=== PATIENT | male | born 1960 | race African-American/Black ===

== ENCOUNTER 2017-01-23 08:16 | Inpatient (IN) | payer OTHER ==
[2017-01-23 08:51] VITALS: BMI 27.3
--- NOTE | 2017-01-23 10:41 | HP ---
CIWA Score - CIWA Score Nausea/Vomitin-No Nausea/No Vomiting Muscle Tremors: 4-Moderate,w/Arms Extend Anxiety: 4-Mod. Anxious/Guarded Agitation: 4-Moderately Restless Paroxysmal Sweats: 1-Minimal Palms Moist Orientation: 0-Oriented Tacttile Disturbances: 3-Moderate Itch/Numb/Burn Auditory Disturbances: 0-None Visual Disturbances: 0-None Headache: 0-None Present CIWA-Ar Total Score: 16 Admission ROS BHS - HPI Chief Complaint: DETOX TREATMENT FOR ALCOHOL WITHDRAWAL SX. Allergies/Adverse Reactions: Allergies Allergy/AdvReac Type Severity Reaction Status Date / Time penicillin V Allergy Hives Verified 01/23/17 09:06 History of Present Illness: 56 Y/O AA/MALE WITH A HX OF ALCOHOL DEPENDENCE SEEKING DETOX TX. PT HAS PREVIOUS MULTIPLE TX EPISODES. Exam Limitations: No Limitations - Ebola screening Have you traveled outside of the country in the last 21 days: No Have you had contact with anyone from an Ebola affected area: No Have you been sick,other than usual withdrawal symptoms: No Do you have a fever: No - Review of Systems Constitutional: Chills, Night Sweats, Changes in sleep, Unintentional Wgt. Loss EENT: reports: Blurred Vision, Dental Problems (MISSING TEETH) Respiratory: reports: No Symptoms reported Cardiac: reports: Lightheadedness GI: reports: Constipated, Diarrhea, Nausea, Poor Fluid Intake, Vomiting : reports: No Symptoms Reported Musculoskeletal: reports: Back Pain, Joint Pain, Muscle Pain Integumentary: reports: No Symptoms Reported Neuro: reports: Tremors, Unsteady Gait, Dizziness Endocrine: reports: No Symptoms Reported Hematology: reports: No Symptoms Reported Psychiatric: reports: Orientated x3 Other Systems: Reviewed and Negative Patient History - Patient Medical History Hx Anemia: No Hx Asthma: No Hx Chronic Obstructive Pulmonary Disease (COPD): No Hx Cancer: No Hx Cardiac Disorders: No Hx Congestive Heart Failure: No Hx Hypertension: No Hx Hypercholesterolemia: No Hx Pacemaker: No HX Cerebrovascular Accident: No Hx Seizures: No Hx Dementia: No Hx Diabetes: No Hx Gastrointestinal Disorders: No Hx Liver Disease: Yes (LIVER CIRRHOSIS) Hx Genitourinary Disorders: No Hx Sexually Transmitted Disorders: Yes (sphyllis) Hx Renal Disease (ESRD): No Hx Thyroid Disease: No Hx Human Immunodeficiency Virus (HIV): No (NEGATIVE HX) Hx Hepatitis C: Yes Hx Depression: Yes (NO CURRENT MED) Hx Suicide Attempt: No Hx Bipolar Disorder: No Hx Schizophrenia: No - Patient Surgical History Past Surgical History: Yes Hx Neurologic Surgery: No Hx Cataract Extraction: No Hx Cardiac Surgery: No Hx Lung Surgery: No Hx Breast Surgery: No Hx Breast Biopsy: No Hx Abdominal Surgery: No Hx Appendectomy: No Hx Cholecystectomy: No Hx Genitourinary Surgery: Yes (testicular surgery in childhood) Hx Orthopedic Surgery: No Anesthesia Reaction: No - PPD History Previous Implant?: Yes Documented Results: Negative w/proof Implanted On Prior [facility] Admission?: Yes Date: 04/11/15 Results: 0 mm PPD to be Administered?: Yes - Reproductive History Patient is a Female of Child Bearing Age (11 -55 yrs old): No (MALE) - Smoking Cessation Smoking history: Current every day smoker Have you smoked in the past 12 months: Yes Aproximately how many cigarettes per day: 10 Cigars Per Day: 0 Hx Chewing Tobacco Use: No Initiated information on smoking cessation: Yes 'Breaking Loose' booklet given: 01/23/17 - Substance & Tx. History Hx Alcohol Use: Yes (VODKA) Hx Substance Use: Yes (COCAINE) Substance Use Type: Alcohol, Cocaine Hx Substance Use Treatment: Yes (LAST TX AT [facility] DETOX) - Substances Abused Alcohol Route: Oral Frequency: Daily Amount used: vodka(2 pints) Age of first use: 13 Date of Last Use: 01/22/17 Cocaine Route: Smoking Frequency: Daily Amount used: $200-300 Age of first use: 23 Date of Last Use: 01/21/17 Family Disease History - Family Disease History Family History: Denies Admission Physical Exam [facility] - Vital Signs Vital Signs: Vital Signs - 24 hr 01/23/17 08:49 Temperature 97.8 F Pulse Rate 78 Respiratory 20 Rate Blood Pressure 105/86 - Physical General Appearance: Yes: Moderate Distress, Irritable, Anxious HEENTM: Yes: EOMI, Normocephalic, PROSPER, Pharynx Normal, Photophobia Respiratory: Yes: Chest Non-Tender, Lungs Clear, Normal Breath Sounds, No Respiratory Distress Neck: Yes: No masses,lesions,Nodules, Supple, Trachea in good position Breast: Yes: Breast Exam Deferred Cardiology: Yes: Regular Rhythm, Regular Rate, S1, S2 Abdominal: Yes: Normal Bowel Sounds, Non Tender, Soft Genitourinary: Yes: Other (N/C) Back: Yes: Within Normal Limits Musculoskeletal: Yes: full range of Motion, Gait Steady Extremities: Yes: Normal Range of Motion, Non-Tender, Tremors Neurological: Yes: striker off II-XII NML intact, Fully Oriented, Alert, Motor Strength 5/5 Integumentary: Yes: Dry, Warm Lymphatic: Yes: Within Normal Limits - Diagnostic (1) Alcohol dependence with uncomplicated withdrawal Current Visit: Yes Status: Acute (2) Cirrhosis of liver Current Visit: Yes Status: Chronic Qualifiers: Hepatic cirrhosis type: alcoholic cirrhosis Ascites presence: without ascites Qualified Code(s): K70.30 - Alcoholic cirrhosis of liver without ascites (3) Hepatitis C Current Visit: Yes Status: Chronic Qualifiers: Viral hepatitis chronicity: chronic Hepatic coma status: without hepatic coma Qualified Code(s): B18.2 - Chronic viral hepatitis C (4) Cocaine dependence, uncomplicated Current Visit: Yes Status: Acute (5) Nicotine dependence Current Visit: Yes Status: Acute Qualifiers: Nicotine product type: cigarettes Substance use status: in withdrawal Qualified Code(s): F17.213 - Nicotine dependence, cigarettes, with withdrawal Cleared for Admission [facility] - Detox or Rehab [facility] Level of Care: Medically Managed Detox Regimen/Protocol: Librium [facility] Breath Alcohol Content Breath Alcohol Content: 0 Urine Drug Screen - Results Drug Screen Negative: No Urine Drug Screen Results: GORDO-Cocaine
[2017-01-23] MEDS ORDERED: P-EPHED 60MG/TRIPROLIDI 2.5MG TABLET PO PRN (10:50)
[2017-01-23] MEDS ORDERED: hydrOXYzine PAMOATE 25 MG CAPSULE (FP) PO PRN (10:50)
[2017-01-23] MEDS ORDERED: MAGNESIUM CITRATE 300 ML BOTTLE PO PRN (10:50)
[2017-01-23] MEDS ORDERED: LOPERAMIDE HCL 2 MG CAPSULE PO PRN (10:50)
[2017-01-23] MEDS ORDERED: MAGNESIUM HYDROX 2400MG/30ML ORAL SUSPENSION 30 ML CUP PO PRN (10:50)
[2017-01-23] MEDS ORDERED: MAG HYDROX/AL HYDROX/SIMETH 30 ML UNIT-DOSE CUP PO PRN (10:50)
[2017-01-23] MEDS ORDERED: MENTHOL/PHENOL 1 EACH UD MM PRN (10:50)
[2017-01-23] MEDS ORDERED: chlordiazePOXIDE HCL 25 MG CAPSULE PO PRN (10:50)
[2017-01-23] MEDS ORDERED: guaiFENesin/D-METHORPHAN HB 10 ML UNIT-DOSE CUPS PO PRN (10:50)
[2017-01-23] MEDS ORDERED: IBUPROFEN 400 MG TABLET (FP) PO PRN (10:50)
[2017-01-23] MEDS ORDERED: NICOTINE POLACRILEX 2 MG GUM BUC PRN (10:50)
[2017-01-23 12:21] LABS: HIV 1 & 2 AB NEGATIVE; HIV 1 AGp24 NEGATIVE
[2017-01-23] MEDS: chlordiazePOXIDE HCL 25 MG CAPSULE PO SCH ×3 (12:35→22:17)
[2017-01-23] MEDS: NICOTINE 14 MG/24 HOURS TOPICAL PATCH TD SCH (12:36)
--- NOTE | 2017-01-23 15:39 | EKG ---
Test Reason : Blood Pressure : / mmHG Vent. Rate : 073 BPM Atrial Rate : 073 BPM P-R Int : 144 ms QRS Dur : 092 ms QT Int : 400 ms P-R-T Axes : 057 -07 035 degrees QTc Int : 440 ms NORMAL SINUS RHYTHM WITH SINUS ARRHYTHMIA NORMAL ECG NO PREVIOUS ECGS AVAILABLE Confirmed by DANICA PIZARRO MD ([id number]) on 01/23/2017 3:38:55 PM Referred By: Confirmed By:DANICA PIZARRO MD
[2017-01-23 16:23] LABS: URINE APPEARANCE CLEAR; URINE BILIRUBIN NEGATIVE (NEGATIVE); URINE BLOOD NEGATIVE (NEGATIVE); URINE COLOR YELLOW; URINE GLUCOSE (UA) NEGATIVE (NEGATIVE); URINE KETONE NEGATIVE (NEGATIVE); URINE NITRITE NEGATIVE (NEGATIVE); URINE PROTEIN NEGATIVE (NEGATIVE); URINE UROBILINOGEN NEGATIVE mg/dL (0.2-1.0)
[2017-01-23 18:51] LABS: URINE LEUK ESTERASE Negative (NEGATIVE)
[2017-01-23] MEDS: THIAMINE HCL 100 MG TABLET (FP) PO SCH (22:17)
[2017-01-24] MEDS: chlordiazePOXIDE HCL 25 MG CAPSULE PO SCH ×4 (05:24→22:26)
--- NOTE | 2017-01-24 09:44 | PN ---
[facility] CIWA - CIWA Score Nausea/Vomitin Muscle Tremors: 3 Anxiety: 3 Agitation: 2 Paroxysmal Sweats: 1-Minimal Palms Moist Orientation: 0-Oriented Tacttile Disturbances: 1-Very Mild Itch/Numbness Auditory Disturbances: 1-Very Mild Visual Disturbances: 2-Mild Sensitivity Headache: 0-None Present CIWA-Ar Total Score: 16 BHS Progress Note (SOAP) Subjective: alert,irritable,anxious,interrupted sleep,tremor Objective: 01/24/17 09:42 Vital Signs Temperature 97.5 F L 01/24/17 09:38 Pulse Rate 72 01/24/17 09:38 Respiratory Rate 18 01/24/17 09:38 Blood Pressure 121/78 01/24/17 09:38 O2 Sat by Pulse Oximetry (%) ekg nsr with sinus arrhythmia Laboratory Last Values Urine Color Yellow 01/23/17 15:30 Urine Appearance Clear 01/23/17 15:30 Urine pH 5.0 (5.0-8.0) 01/23/17 15:30 Ur Specific [place] 1.026 (1.001-1.035) 01/23/17 15:30 Urine Protein Negative (NEGATIVE) 01/23/17 15:30 Urine Glucose (UA) Negative (NEGATIVE) 01/23/17 15:30 Urine Ketones Negative (NEGATIVE) 01/23/17 15:30 Urine Blood Negative (NEGATIVE) 01/23/17 15:30 Urine Nitrite Negative (NEGATIVE) 01/23/17 15:30 Urine Bilirubin Negative (NEGATIVE) 01/23/17 15:30 Urine Urobilinogen Negative mg/dL (0.2-1.0) 01/23/17 15:30 Ur Leukocyte Esterase Negative (NEGATIVE) 01/23/17 15:30 HIV 1&2 Antibody Screen Negative 01/23/17 09:20 HIV P24 Antigen Negative 01/23/17 09:20 labs pending Assessment: 01/24/17 09:43 withdrawal symptom Plan: continue detox
[2017-01-24 10:00] LABS: MCH 27.3 pg (25.7-33.7); MCHC 32.2 g/dl (32.0-35.9); MEAN CELL VOLUME 84.7 fl (80-96); MEAN PLT VOLUME 9.2 fl (7.5-11.1); PLATELET COUNT 238 K/MM3 (134-434); RDW 16.7 % (11.9-15.9)
[2017-01-24] MEDS: NICOTINE 14 MG/24 HOURS TOPICAL PATCH TD SCH (10:01)
[2017-01-24] MEDS: TRIMETHOBENZAMIDE HCL 200MG/2ML INJ IM ONE ×2 (10:01→10:04)
[2017-01-24] MEDS: PRENATAL VITAMINS W/ FOLIC ACID TABLET (FP) PO SCH (10:01)
[2017-01-24] MEDS ORDERED: TRIMETHOBENZAMIDE HCL 300 MG CAPSULE PO PRN (10:04)
[2017-01-24 10:13] LABS: ALBUMIN 3.7 g/dl (3.4-5.0); ANION GAP 7 (8-16); CO2 27 mmol/L (21-32); GLUCOSE,RANDOM 118 mg/dL (74-106); SGOT/AST 76 U/L (15-37); SGPT/ALT 80 U/L (12-78)
[2017-01-24 10:15] LABS: ALK PHOS 84 U/L (45-117); BILIRUBIN,TOTAL 0.2 mg/dL (0.2-1.0); CALCIUM 8.6 mg/dL (8.5-10.1); TOT PROT 6.9 g/dl (6.4-8.2)
--- NOTE | 2017-01-24 12:55 | CONSULT ---
[facility] Psychiatric Consult - Data Date of interview: 01/24/17 Admission source: [facility] Identifying data: Patient REFUSED psychiatric evaluation.
[2017-01-24] MEDS: THIAMINE HCL 100 MG TABLET (FP) PO SCH (22:26)
[2017-01-25] MEDS: chlordiazePOXIDE HCL 25 MG CAPSULE PO SCH (05:45)
--- NOTE | 2017-01-25 09:54 | PN ---
S CIWA - CIWA Score Nausea/Vomitin Muscle Tremors: 3 Anxiety: 3 Agitation: 2 Paroxysmal Sweats: 1-Minimal Palms Moist Orientation: 0-Oriented Tacttile Disturbances: 1-Very Mild Itch/Numbness Auditory Disturbances: 1-Very Mild Visual Disturbances: 0-None Headache: 2-Mild CIWA-Ar Total Score: 16 BHS Progress Note (SOAP) Subjective: alert,irritable,anxious,interrupted sleep,tremor Objective: 01/25/17 09:53 Vital Signs Temperature 97.3 F L 01/25/17 06:00 Pulse Rate 62 01/25/17 06:00 Respiratory Rate 18 01/25/17 06:00 Blood Pressure 108/76 01/25/17 06:00 O2 Sat by Pulse Oximetry (%) Laboratory Last Values WBC 7.0 K/mm3 (4.0-10.0) 01/24/17 06:00 RBC 4.76 M/mm3 (4.00-5.60) 01/24/17 06:00 Hgb 13.0 GM/dL (11.7-16.9) 01/24/17 06:00 Hct 40.3 % (35.4-49) 01/24/17 06:00 MCV 84.7 fl (80-96) 01/24/17 06:00 MCH 27.3 pg (25.7-33.7) 01/24/17 06:00 MCHC 32.2 g/dl (32.0-35.9) 01/24/17 06:00 RDW 16.7 % (11.9-15.9) H 01/24/17 06:00 Plt Count 238 K/MM3 (134-434) 01/24/17 06:00 MPV 9.2 fl (7.5-11.1) D 01/24/17 06:00 Sodium 140 mmol/L (136-145) 01/24/17 06:00 Potassium 3.8 mmol/L (3.5-5.1) 01/24/17 06:00 Chloride 106 mmol/L (98-107) 01/24/17 06:00 Carbon Dioxide 27 mmol/L (21-32) 01/24/17 06:00 Anion Gap 7 (8-16) L 01/24/17 06:00 BUN 17 mg/dL (7-18) 01/24/17 06:00 Creatinine 1.0 mg/dL (0.7-1.3) 01/24/17 06:00 Creat Clearance w eGFR > 60 (>60) 01/24/17 06:00 Random Glucose 118 mg/dL (74-106) H 01/24/17 06:00 Calcium 8.6 mg/dL (8.5-10.1) 01/24/17 06:00 Total Bilirubin 0.2 mg/dL (0.2-1.0) D 01/24/17 06:00 AST 76 U/L (15-37) H D 01/24/17 06:00 ALT 80 U/L (12-78) H D 01/24/17 06:00 Alkaline Phosphatase 84 U/L (45-117) 01/24/17 06:00 Total Protein 6.9 g/dl (6.4-8.2) 01/24/17 06:00 Albumin 3.7 g/dl (3.4-5.0) 01/24/17 06:00 Urine Color Yellow 01/23/17 15:30 Urine Appearance Clear 01/23/17 15:30 Urine pH 5.0 (5.0-8.0) 01/23/17 15:30 Ur Specific [place] 1.026 (1.001-1.035) 01/23/17 15:30 Urine Protein Negative (NEGATIVE) 01/23/17 15:30 Urine Glucose (UA) Negative (NEGATIVE) 01/23/17 15:30 Urine Ketones Negative (NEGATIVE) 01/23/17 15:30 Urine Blood Negative (NEGATIVE) 01/23/17 15:30 Urine Nitrite Negative (NEGATIVE) 01/23/17 15:30 Urine Bilirubin Negative (NEGATIVE) 01/23/17 15:30 Urine Urobilinogen Negative mg/dL (0.2-1.0) 01/23/17 15:30 Ur Leukocyte Esterase Negative (NEGATIVE) 01/23/17 15:30 RPR Titer Reactive 1:1 (NONREACTIVE) H D 01/24/17 06:00 T.pallidum Ab (MHA) Previously reactive (NONREACTIVE) 01/24/17 06:00 HIV 1&2 Antibody Screen Negative 01/23/17 09:20 HIV P24 Antigen Negative 01/23/17 09:20 01/25/17 09:55 previously treated for syphilis before Assessment: 01/25/17 09:56 withdrawal symptom Plan: continue detox
[2017-01-25] MEDS: PRENATAL VITAMINS W/ FOLIC ACID TABLET (FP) PO SCH (10:27)
[2017-01-25] MEDS: chlordiazePOXIDE 5 MG CAPSULE PO SCH ×3 (10:27→22:36)
[2017-01-25] MEDS: NICOTINE 14 MG/24 HOURS TOPICAL PATCH TD SCH (10:28)
[2017-01-25] MEDS: THIAMINE HCL 100 MG TABLET (FP) PO SCH (22:36)
[2017-01-26] MEDS: chlordiazePOXIDE 5 MG CAPSULE PO SCH (05:16)
--- NOTE | 2017-01-26 10:14 | PN ---
S Progress Note (SOAP) Subjective: ALERT,IRRITABLE,ANXIOUS,INTERRUPTED SLEEP,CONSTIPATION Objective: 01/26/17 10:13 Vital Signs Temperature 97.5 F L 01/26/17 10:02 Pulse Rate 77 01/26/17 10:02 Respiratory Rate 18 01/26/17 10:02 Blood Pressure 111/70 01/26/17 10:02 O2 Sat by Pulse Oximetry (%) Assessment: 01/26/17 10:13 WITHDRAWAL SYMPTOM Plan: CONTINUE DETOX,COLACE 100 MGS PO BID,[place]ROM[place],DISCHARGE IN AM
[2017-01-26] MEDS: PRENATAL VITAMINS W/ FOLIC ACID TABLET (FP) PO SCH (10:29)
[2017-01-26] MEDS: chlordiazePOXIDE HCL 10 MG CAPSULE PO SCH ×3 (10:31→22:37)
[2017-01-26] MEDS: DOCUSATE SODIUM 100 MG CAPSULE (FP) PO SCH ×2 (10:31→22:38)
[2017-01-26] MEDS: NICOTINE 14 MG/24 HOURS TOPICAL PATCH TD SCH (10:33)
[2017-01-26 22:30] VITALS: BP 121/52; PULSE 76; TEMP 98
[2017-01-26] MEDS: THIAMINE HCL 100 MG TABLET (FP) PO SCH (22:37)
--- NOTE | 2017-01-27 06:40 | DS ---
[facility] Detox Discharge Summary Admission Date: 01/23/17 Discharge Date: 01/27/17 - History Additional Comments: Detox completed. Patient is alert and oriented x 3. Denies pain or discomfort at this time. Patient encouraged to follw up with PCP for medical management. Pertinent Past History: Hep C and Depression - Physical Exam Results Vital Signs: Vital Signs Temperature 98 F 01/26/17 22:29 Pulse Rate 76 01/26/17 22:29 Respiratory Rate 18 01/27/17 03:30 Blood Pressure 121/52 01/26/17 22:29 O2 Sat by Pulse Oximetry (%) Laboratory Last Values WBC 7.0 K/mm3 (4.0-10.0) 01/24/17 06:00 RBC 4.76 M/mm3 (4.00-5.60) 01/24/17 06:00 Hgb 13.0 GM/dL (11.7-16.9) 01/24/17 06:00 Hct 40.3 % (35.4-49) 01/24/17 06:00 MCV 84.7 fl (80-96) 01/24/17 06:00 MCH 27.3 pg (25.7-33.7) 01/24/17 06:00 MCHC 32.2 g/dl (32.0-35.9) 01/24/17 06:00 RDW 16.7 % (11.9-15.9) H 01/24/17 06:00 Plt Count 238 K/MM3 (134-434) 01/24/17 06:00 MPV 9.2 fl (7.5-11.1) D 01/24/17 06:00 Sodium 140 mmol/L (136-145) 01/24/17 06:00 Potassium 3.8 mmol/L (3.5-5.1) 01/24/17 06:00 Chloride 106 mmol/L (98-107) 01/24/17 06:00 Carbon Dioxide 27 mmol/L (21-32) 01/24/17 06:00 Anion Gap 7 (8-16) L 01/24/17 06:00 BUN 17 mg/dL (7-18) 01/24/17 06:00 Creatinine 1.0 mg/dL (0.7-1.3) 01/24/17 06:00 Creat Clearance w eGFR > 60 (>60) 01/24/17 06:00 Random Glucose 118 mg/dL (74-106) H 01/24/17 06:00 Calcium 8.6 mg/dL (8.5-10.1) 01/24/17 06:00 Total Bilirubin 0.2 mg/dL (0.2-1.0) D 01/24/17 06:00 AST 76 U/L (15-37) H D 01/24/17 06:00 ALT 80 U/L (12-78) H D 01/24/17 06:00 Alkaline Phosphatase 84 U/L (45-117) 01/24/17 06:00 Total Protein 6.9 g/dl (6.4-8.2) 01/24/17 06:00 Albumin 3.7 g/dl (3.4-5.0) 01/24/17 06:00 Urine Color Yellow 01/23/17 15:30 Urine Appearance Clear 01/23/17 15:30 Urine pH 5.0 (5.0-8.0) 01/23/17 15:30 Ur Specific [place] 1.026 (1.001-1.035) 01/23/17 15:30 Urine Protein Negative (NEGATIVE) 01/23/17 15:30 Urine Glucose (UA) Negative (NEGATIVE) 01/23/17 15:30 Urine Ketones Negative (NEGATIVE) 01/23/17 15:30 Urine Blood Negative (NEGATIVE) 01/23/17 15:30 Urine Nitrite Negative (NEGATIVE) 01/23/17 15:30 Urine Bilirubin Negative (NEGATIVE) 01/23/17 15:30 Urine Urobilinogen Negative mg/dL (0.2-1.0) 01/23/17 15:30 Ur Leukocyte Esterase Negative (NEGATIVE) 01/23/17 15:30 RPR Titer Reactive 1:1 (NONREACTIVE) H D 01/24/17 06:00 T.pallidum Ab (MHA) Previously reactive (NONREACTIVE) 01/24/17 06:00 HIV 1&2 Antibody Screen Negative 01/23/17 09:20 HIV P24 Antigen Negative 01/23/17 09:20 Labs noted. Random glucose elevated. Denies h/o DM. Pertinent Admission Physical Exam Findings: Alcohol withdrawal symptoms - Treatment Hospital Course: Detox Protocol Followed, Detoxed Safely, Responded well, Discharged Condition Good Patient has Accepted a Rehab Referral to: [facility] - Medication Discharge Medications: Ambulatory Orders NK [No Known Home Medication] 01/23/17 - Diagnosis (1) Alcohol dependence with uncomplicated withdrawal Current Visit: Yes Status: Chronic (2) Nicotine dependence Current Visit: Yes Status: Chronic (3) Hepatitis C Current Visit: Yes Status: Chronic Qualifiers: Viral hepatitis chronicity: chronic Hepatic coma status: without hepatic coma Qualified Code(s): B18.2 - Chronic viral hepatitis C (4) Cocaine dependence, uncomplicated Current Visit: No Status: Chronic (5) Depression Current Visit: No Status: Chronic (6) MDD (major depressive disorder) Current Visit: No Status: Suspected Qualifiers: Major depression recurrence: recurrent Major depression episode severity: unspecified - AMA Did Patient Leave Against Medical Advice: No
== END 2017-01-27 04:50 | disposition home or self-care (01) | DRG 774 ==
LOC: YASAS 08:16 → Y3N 11:30 → Y6N 11:45
PROVIDERS: ADMIT Internal Medicine; ATTEND Internal Medicine
PROC: HZ2ZZZZ Detoxification Services for Substance Abuse Treatment (ICD-10-PCS; principal; 2017-01-23)
DX: F10.230 Alcohol dependence with withdrawal, uncomplicated (principal); F14.20 Cocaine dependence, uncomplicated; F17.213 Nicotine dependence, cigarettes, with withdrawal; F33.9 Major depressive disorder, recurrent, unspecified; B18.2 Chronic viral hepatitis C; K70.30 Alcoholic cirrhosis of liver without ascites; I49.9 Cardiac arrhythmia, unspecified; Z87.438 Personal history of other diseases of male genital organs; Z88.0 Allergy status to penicillin
CPT/HCPCS: 36415; 80053; 81003; 85027; 86593; 86780; 87389; 93005; 93010

== ENCOUNTER 2018-02-21 13:25 | Inpatient (IN) | payer OTHER ==
[2018-02-21 14:37] VITALS: BMI 27.7
--- NOTE | 2018-02-21 17:41 | HP ---
CIWA Score Nausea/Vomitin-Mild Nausea/No Vomiting Muscle Tremors: 3 Anxiety: 2 Agitation: 2 Paroxysmal Sweats: 2 Orientation: 0-Oriented Tacttile Disturbances: 0-None Auditory Disturbances: 0-None Visual Disturbances: 0-None Headache: 2-Mild CIWA-Ar Total Score: 12 - Admission Criteria [facility] Guidelines: Admission for Medically Managed Detox: Requires at least one of the followin. CIWA greater than 12 2. Seizures within the past 24 hours 3. Delirium tremens within the past 24 hours 4. Hallucinations within the past 24 hours 5. Acute intervention needed for co occurring medical disorder 6. Acute intervention needed for co occurring psychiatric disorder 7. Severe withdrawal that cannot be handled at a lower level of care (continued vomiting, continued diarrhea, abnormal vital signs) requiring intravenous medication and/or fluids 8. Patient presents the following: CIWA greater than 12 Admission Criteria Met: Admission criteria met Admission ROS [facility] Chief Complaint: "detox from alcohol, cocaine and THC" 57 yo with h/o HCV or HBV with long h/o alcohol use > 30 years, recently in detox 09/2017, relapsed one month later. Using alcohol 2 pints/day, last drink yesterday, no h/o seizures/DT's Cocaine- $350/day- uses money from inheritance THC- use just a little bit a day Allergies/Adverse Reactions: Allergies Allergy/AdvReac Type Severity Reaction Status Date / Time penicillin V Allergy Severe Hives Verified 02/21/18 15:37 acetaminophen [From Tylenol] Allergy Unknown Verified 02/21/18 15:37 - Ebola screening Have you traveled outside of the country in the last 21 days: No Have you had contact with anyone from an Ebola affected area: No Have you been sick,other than usual withdrawal symptoms: No - Review of Systems Constitutional: No Symptoms Reported EENT: reports: No Symptoms Reported Respiratory: reports: No Symptoms reported Cardiac: reports: No Symptoms Reported GI: reports: No Symptoms Reported : reports: No Symptoms Reported Musculoskeletal: reports: No Symptoms Reported Integumentary: reports: No Symptoms Reported Neuro: reports: No Symptoms reported Endocrine: reports: No Symptoms Reported Hematology: reports: No Symptoms Reported Psychiatric: reports: No Sypmtoms Reported Patient History - Patient Medical History Hx Anemia: No Hx Asthma: No Hx Chronic Obstructive Pulmonary Disease (COPD): No Hx Cancer: No Hx Cardiac Disorders: No Hx Congestive Heart Failure: No Hx Hypertension: No Hx Hypercholesterolemia: No Hx Pacemaker: No HX Cerebrovascular Accident: No Hx Seizures: No Hx Dementia: No Hx Diabetes: No Hx Gastrointestinal Disorders: No Hx Liver Disease: Yes (LIVER CIRRHOSIS) Hx Genitourinary Disorders: No Hx Sexually Transmitted Disorders: Yes (syphilis at age 16) Hx Renal Disease (ESRD): No Hx Thyroid Disease: No Hx Human Immunodeficiency Virus (HIV): No (NEGATIVE HX) Hx Hepatitis C: Yes Hx Depression: Yes Hx Suicide Attempt: No Hx Bipolar Disorder: No Hx Schizophrenia: Yes (schizoaffective disorder) - Patient Surgical History Past Surgical History: Yes Hx Neurologic Surgery: No Hx Cataract Extraction: No Hx Cardiac Surgery: No Hx Lung Surgery: No Hx Breast Surgery: No Hx Breast Biopsy: No Hx Abdominal Surgery: No Hx Appendectomy: No Hx Cholecystectomy: No Hx Genitourinary Surgery: Yes (right testicular sx as a child) Hx Section: No Hx Orthopedic Surgery: No Anesthesia Reaction: No - PPD History Previous Implant?: Yes Documented Results: Negative w/proof Implanted On Prior [facility] Admission?: Yes Date: 09/19/17 Results: 0 mm - Smoking Cessation Smoking history: Current every day smoker Have you smoked in the past 12 months: Yes Aproximately how many cigarettes per day: 8 Cigars Per Day: 0 Hx Chewing Tobacco Use: No Initiated information on smoking cessation: Yes 'Breaking Loose' booklet given: 02/27/18 - Substances Abused Cocaine Route: Inhalation Frequency: Daily Amount used: $350 Age of first use: 20 Date of Last Use: 02/20/18 Alcohol-vodka/beer Route: Oral Frequency: Daily Amount used: 1 pt./1-6 pk. Age of first use: 14 Date of Last Use: 02/20/18 Marijuana Route: Smoking Frequency: 3-6 times per week Amount used: $5 Age of first use: 20 Date of Last Use: 02/19/18 Family Disease History - Family Disease History Family Disease History: Other: Father (alcohol,), Mother (alcohol, ) Admission Physical Exam BHS - Vital Signs Vital Signs: Vital Signs - 24 hr 02/21/18 14:32 Temperature 98.6 F Pulse Rate 81 Respiratory 18 Rate Blood Pressure 122/82 - Physical General Appearance: Yes: Within Normal Limits HEENTM: Yes: Within Normal Limits, Normal Voice Respiratory: Yes: Within Normal Limits, Lungs Clear Neck: Yes: Within Normal Limits Breast: Yes: Breast Exam Deferred Cardiology: Yes: S1, S2 Abdominal: Yes: Within Normal Limits, Protuberent Genitourinary: Yes: Within Normal Limits Back: Yes: Within Normal Limits Musculoskeletal: Yes: Within Normal Limits Extremities: Yes: Within Normal Limits Neurological: Yes: Within Normal Limits Integumentary: Yes: Within Normal Limits Lymphatic: Yes: Within Normal Limits Cleared for Admission [facility] - Detox or Rehab [facility] Level of Care: Medically Managed [facility] Breath Alcohol Content Breath Alcohol Content: 0.028 Urine Drug Screen - Results Drug Screen Negative: No Urine Drug Screen Results: GORDO-Cocaine, BZO-Benzodiazepines
[2018-02-21] MEDS ORDERED: IBUPROFEN 400 MG TABLET (FP) PO PRN (17:47)
[2018-02-21] MEDS ORDERED: P-EPHED 60MG/TRIPROLIDI 2.5MG TABLET PO PRN (17:47)
[2018-02-21] MEDS ORDERED: MAG HYDROX/AL HYDROX/SIMETH 30 ML UNIT-DOSE CUP PO PRN (17:47)
[2018-02-21] MEDS ORDERED: LOPERAMIDE HCL 2 MG CAPSULE PO PRN (17:47)
[2018-02-21] MEDS ORDERED: guaiFENesin/D-METHORPHAN HB 10 ML UNIT-DOSE CUPS PO PRN (17:47)
[2018-02-21] MEDS ORDERED: MAGNESIUM HYDROX 2400MG/30ML ORAL SUSPENSION 30 ML CUP PO PRN (17:47)
[2018-02-21] MEDS ORDERED: MAGNESIUM CITRATE 300 ML BOTTLE PO PRN (17:47)
[2018-02-21] MEDS ORDERED: MENTHOL/PHENOL 1 EACH UD MM PRN (17:47)
[2018-02-21] MEDS ORDERED: chlordiazePOXIDE HCL 25 MG CAPSULE PO PRN (17:50)
[2018-02-21] MEDS ORDERED: MELATONIN 5 MG TABLETS PO PRN (22:00)
[2018-02-21] MEDS: chlordiazePOXIDE HCL 25 MG CAPSULE PO SCH (22:22)
[2018-02-21] MEDS: THIAMINE HCL 100 MG TABLET (FP) PO SCH (22:22)
[2018-02-22] MEDS: chlordiazePOXIDE HCL 25 MG CAPSULE PO SCH ×4 (05:28→22:20)
[2018-02-22] MEDS: PRENATAL VITAMINS W/ FOLIC ACID TABLET (FP) PO SCH (10:06)
[2018-02-22 11:03] LABS: HEMATOCRIT 40.3 % (35.4-49); MCH 27.7 pg (25.7-33.7); MCHC 32.2 g/dl (32.0-35.9); MEAN CELL VOLUME 86.2 fl (80-96); MEAN PLT VOLUME 8.3 fl (7.5-11.1); PLATELET COUNT 229 K/MM3 (134-434); RBC 4.68 M/mm3 (4.00-5.60)
[2018-02-22 11:51] LABS: ALBUMIN 3.4 g/dl (3.4-5.0); ALK PHOS 76 U/L (45-117); ANION GAP 10 MMOL/L (8-16); BILIRUBIN,TOTAL 0.2 mg/dL (0.2-1); BLOOD UREA NITROGEN 18 mg/dL (7-18); CALCIUM 8.4 mg/dL (8.5-10.1); CHLORIDE 108 mmol/L (98-107); CO2 23 mmol/L (21-32); CREATININE 1.1 mg/dL (0.55-1.3); GLUCOSE,RANDOM 87 mg/dL (74-106); SGOT/AST 23 U/L (15-37); SGPT/ALT 34 U/L (13-61); SODIUM 141 mmol/L (136-145); TOT PROT 6.7 g/dl (6.4-8.2)
[2018-02-22 11:58] LABS: RPR REACTIVE 1:2 (NONREACTIVE)
[2018-02-22 11:59] LABS: TREPONEMA ANTIBODY PREVIOUSLY REACTIVE (NONREACTIVE)
--- NOTE | 2018-02-22 12:38 | PN ---
[facility] CIWA - CIWA Score Nausea/Vomitin-Mild Nausea/No Vomiting Muscle Tremors: 3 Anxiety: 3 Agitation: 2 Paroxysmal Sweats: 1-Minimal Palms Moist Orientation: 0-Oriented Tacttile Disturbances: 0-None Auditory Disturbances: 0-None Visual Disturbances: 0-None Headache: 1-Very Mild CIWA-Ar Total Score: 11 S Progress Note (SOAP) Subjective: headaches tremor sweat trouble have bowel movement Objective: 02/22/18 12:51 Vital Signs Temperature 97.6 F 02/22/18 09:25 Pulse Rate 75 02/22/18 09:25 Respiratory Rate 20 02/22/18 09:25 Blood Pressure 114/72 02/22/18 09:25 O2 Sat by Pulse Oximetry (%) Laboratory Last Values WBC 5.0 K/mm3 (4.0-10.0) 02/22/18 07:30 RBC 4.68 M/mm3 (4.00-5.60) 02/22/18 07:30 Hgb 13.0 GM/dL (11.7-16.9) 02/22/18 07:30 Hct 40.3 % (35.4-49) 02/22/18 07:30 MCV 86.2 fl (80-96) 02/22/18 07:30 MCH 27.7 pg (25.7-33.7) 02/22/18 07:30 MCHC 32.2 g/dl (32.0-35.9) 02/22/18 07:30 RDW 16.0 % (11.9-15.9) H 02/22/18 07:30 Plt Count 229 K/MM3 (134-434) 02/22/18 07:30 MPV 8.3 fl (7.5-11.1) 02/22/18 07:30 Sodium 141 mmol/L (136-145) 02/22/18 07:30 Potassium 4.0 mmol/L (3.5-5.1) 02/22/18 07:30 Chloride 108 mmol/L (98-107) H 02/22/18 07:30 Carbon Dioxide 23 mmol/L (21-32) 02/22/18 07:30 Anion Gap 10 MMOL/L (8-16) 02/22/18 07:30 BUN 18 mg/dL (7-18) 02/22/18 07:30 Creatinine 1.1 mg/dL (0.55-1.3) 02/22/18 07:30 Creat Clearance w eGFR > 60 (>60) 02/22/18 07:30 Random Glucose 87 mg/dL (74-106) 02/22/18 07:30 Calcium 8.4 mg/dL (8.5-10.1) L 02/22/18 07:30 Total Bilirubin 0.2 mg/dL (0.2-1) 02/22/18 07:30 AST 23 U/L (15-37) 02/22/18 07:30 ALT 34 U/L (13-61) 02/22/18 07:30 Alkaline Phosphatase 76 U/L (45-117) 02/22/18 07:30 Total Protein 6.7 g/dl (6.4-8.2) 02/22/18 07:30 Albumin 3.4 g/dl (3.4-5.0) 02/22/18 07:30 RPR Titer Reactive 1:2 (NONREACTIVE) H D 02/22/18 07:30 T.pallidum Ab (MHA) Previously reactive (NONREACTIVE) 02/22/18 07:30 lab noted Assessment: 02/22/18 12:52 withdrawal sx constipation Plan: continue detox laxative
[2018-02-22] MEDS: THIAMINE HCL 100 MG TABLET (FP) PO SCH (22:20)
[2018-02-23] MEDS: chlordiazePOXIDE HCL 25 MG CAPSULE PO SCH ×3 (05:26→17:54)
[2018-02-23] MEDS: PRENATAL VITAMINS W/ FOLIC ACID TABLET (FP) PO SCH (10:14)
--- NOTE | 2018-02-23 16:13 | PN ---
S CIWA - CIWA Score Nausea/Vomitin-No Nausea/No Vomiting Muscle Tremors: 3 Anxiety: 1-Mildly Anxious Agitation: 2 Paroxysmal Sweats: 1-Minimal Palms Moist Orientation: 0-Oriented Tacttile Disturbances: 0-None Auditory Disturbances: 0-None Visual Disturbances: 0-None Headache: 1-Very Mild CIWA-Ar Total Score: 8 S Progress Note (SOAP) Subjective: tremor sweat irritable trouble sleep at night Objective: 02/23/18 16:13 Vital Signs Temperature 97.7 F 02/23/18 13:36 Pulse Rate 73 02/23/18 13:36 Respiratory Rate 18 02/23/18 13:36 Blood Pressure 122/76 02/23/18 13:36 O2 Sat by Pulse Oximetry (%) Laboratory Last Values WBC 5.0 K/mm3 (4.0-10.0) 02/22/18 07:30 RBC 4.68 M/mm3 (4.00-5.60) 02/22/18 07:30 Hgb 13.0 GM/dL (11.7-16.9) 02/22/18 07:30 Hct 40.3 % (35.4-49) 02/22/18 07:30 MCV 86.2 fl (80-96) 02/22/18 07:30 MCH 27.7 pg (25.7-33.7) 02/22/18 07:30 MCHC 32.2 g/dl (32.0-35.9) 02/22/18 07:30 RDW 16.0 % (11.9-15.9) H 02/22/18 07:30 Plt Count 229 K/MM3 (134-434) 02/22/18 07:30 MPV 8.3 fl (7.5-11.1) 02/22/18 07:30 Sodium 141 mmol/L (136-145) 02/22/18 07:30 Potassium 4.0 mmol/L (3.5-5.1) 02/22/18 07:30 Chloride 108 mmol/L (98-107) H 02/22/18 07:30 Carbon Dioxide 23 mmol/L (21-32) 02/22/18 07:30 Anion Gap 10 MMOL/L (8-16) 02/22/18 07:30 BUN 18 mg/dL (7-18) 02/22/18 07:30 Creatinine 1.1 mg/dL (0.55-1.3) 02/22/18 07:30 Creat Clearance w eGFR > 60 (>60) 02/22/18 07:30 Random Glucose 87 mg/dL (74-106) 02/22/18 07:30 Calcium 8.4 mg/dL (8.5-10.1) L 02/22/18 07:30 Total Bilirubin 0.2 mg/dL (0.2-1) 02/22/18 07:30 AST 23 U/L (15-37) 02/22/18 07:30 ALT 34 U/L (13-61) 02/22/18 07:30 Alkaline Phosphatase 76 U/L (45-117) 02/22/18 07:30 Total Protein 6.7 g/dl (6.4-8.2) 02/22/18 07:30 Albumin 3.4 g/dl (3.4-5.0) 02/22/18 07:30 RPR Titer Reactive 1:2 (NONREACTIVE) H D 02/22/18 07:30 T.pallidum Ab (MHA) Previously reactive (NONREACTIVE) 02/22/18 07:30 lab noted Assessment: 02/23/18 16:13 withdrawal sx Plan: continue detox
[2018-02-23] MEDS: chlordiazePOXIDE 5 MG CAPSULE PO SCH (22:26)
[2018-02-23] MEDS: THIAMINE HCL 100 MG TABLET (FP) PO SCH (22:26)
[2018-02-24] MEDS: chlordiazePOXIDE 5 MG CAPSULE PO SCH ×3 (05:30→17:04)
[2018-02-24] MEDS: PRENATAL VITAMINS W/ FOLIC ACID TABLET (FP) PO SCH (10:12)
[2018-02-24] MEDS ORDERED: PANTOPRAZOLE 40 MG TABLET (FP) PO SCH (10:30)
--- NOTE | 2018-02-24 14:39 | PN ---
S Progress Note Note: PATIENT C/O CONSTIPATION AND HEARTBURN. ALERT AND ORIENTED X 3. CONTINUES WITH DETOX REGIMEN. DENIES SHAKES, ANXIETY AND SWEATING. Vital Signs Temperature 96.7 F L 02/24/18 13:24 Pulse Rate 84 02/24/18 13:24 Respiratory Rate 18 02/24/18 13:24 Blood Pressure 128/77 02/24/18 13:24 O2 Sat by Pulse Oximetry (%) Laboratory Tests 02/22/18 02/22/18 02/22/18 07:30 07:30 07:30 WBC 5.0 RBC 4.68 Hgb 13.0 Hct 40.3 MCV 86.2 MCH 27.7 MCHC 32.2 RDW 16.0 H Plt Count 229 MPV 8.3 Sodium 141 Potassium 4.0 Chloride 108 H Carbon Dioxide 23 Anion Gap 10 BUN 18 Creatinine 1.1 Creat Clearance w eGFR > 60 Random Glucose 87 Calcium 8.4 L Total Bilirubin 0.2 AST 23 ALT 34 Alkaline Phosphatase 76 Total Protein 6.7 Albumin 3.4 RPR Titer Reactive 1:2 H D T.pallidum Ab (A) Previously reactive PE; SKIN WARM AND DRY CAR S1S2 RESP CTA BL GI SOFT, BS+, NT EXT FULL ROM, NO TREMORS ALERT AND ORIENTED X 3 A/P WITHDRAWAL SX CONSTIPATION CONTINUE DETOX ENCOURAGE ORAL FLUIDS MOM AND CITROMA PRN FOR CONSTIPATION ADD PROTONIX 40MG DAILY CONTINUE TO MONITOR
[2018-02-24] MEDS: THIAMINE HCL 100 MG TABLET (FP) PO SCH (22:19)
[2018-02-24] MEDS: chlordiazePOXIDE HCL 10 MG CAPSULE PO SCH (22:20)
[2018-02-25] MEDS: chlordiazePOXIDE HCL 10 MG CAPSULE PO SCH (05:30)
[2018-02-25 06:21] VITALS: BP 103/55; PULSE 61; TEMP 97.2
== END 2018-02-25 09:30 | disposition home or self-care (01) | DRG 774 ==
LOC: YASAS 13:25 → Y3N 18:30
PROC: HZ2ZZZZ Detoxification Services for Substance Abuse Treatment (ICD-10-PCS; principal; 2018-02-21)
DX: F10.230 Alcohol dependence with withdrawal, uncomplicated (principal); F14.20 Cocaine dependence, uncomplicated; F12.10 Cannabis abuse, uncomplicated; F17.210 Nicotine dependence, cigarettes, uncomplicated; K59.00 Constipation, unspecified; K74.60 Unspecified cirrhosis of liver; Z87.438 Personal history of other diseases of male genital organs
CPT/HCPCS: 36415; 80053; 85027; 86593; 86780

== ENCOUNTER 2019-01-02 11:26 | Inpatient (IN) | payer OTHER ==
[2019-01-02 12:46] VITALS: BMI 28.6
--- NOTE | 2019-01-02 14:14 | HP ---
CIWA Score Nausea/Vomitin-No Nausea/No Vomiting Muscle Tremors: 4-Moderate,w/Arms Extend Anxiety: 0-No Anxiety, at Ease Agitation: 0-Normal Activity Paroxysmal Sweats: No Perspiration Orientation: 0-Oriented Tacttile Disturbances: 0-None Auditory Disturbances: 0-None Visual Disturbances: 0-None Headache: 0-None Present CIWA-Ar Total Score: 4 - Admission Criteria [facility] Guidelines: Admission for Medically Managed Detox: Requires at least one of the followin. CIWA greater than 12 2. Seizures within the past 24 hours 3. Delirium tremens within the past 24 hours 4. Hallucinations within the past 24 hours 5. Acute intervention needed for co occurring medical disorder 6. Acute intervention needed for co occurring psychiatric disorder 7. Severe withdrawal that cannot be handled at a lower level of care (continued vomiting, continued diarrhea, abnormal vital signs) requiring intravenous medication and/or fluids 8. Admitting History and Physical - Admission History of Present Illness: 58 y.o. M PMH hepatitis B- untreated, diagnosed a few years ago. Crack: Daily use, has been using for ~20 years. Last used 1 week ago. $250/day about 4g. Smokes, never injected. Lopez never overdosed. EtOH: uses daily. Drinks 2x 6 packs and 2 pints vodka, rum daily. Last drank today, had a few beers. Has never had a seizure form not drinking. Heroin: last used 3 weeks ago. Sniffs, never injected before. Used about 4 bags at once, less than 1 oz. per bag. Marijuana: uses 3x/ week. Last used less than 2 weeks ago. Cigarettes: 10 per day. Has been smoking for 25 years. PSH: appendectomy. Social hx: Lives alone. Has as his support system. Transgender. Not currently working, doing community service. Last incarcerated beginning of this year. Allergies: tylenol, Penicillin-- face swells up, difficulty breathing when he does take it. Meds: None Faily hx: non- contributory - Past Medical History Hepatobiliary: Yes: Hepatitis B - Past Surgical History Past Surgical History: Yes: Appendectomy - Smoking History Smoking history: Current every day smoker Have you smoked in the past 12 months: Yes Aproximately how many cigarettes per day: 8 - Alcohol/Substance Use Hx Alcohol Use: Yes Admission ROS S - HPI Allergies/Adverse Reactions: Allergies Allergy/AdvReac Type Severity Reaction Status Date / Time penicillin V Allergy Severe Hives Verified 01/02/19 12:38 acetaminophen [From Tylenol] Allergy Unknown Verified 01/02/19 12:38 - Ebola screening Have you traveled outside of the country in the last 21 days: No Have you had contact with anyone from an Ebola affected area: No Do you have a fever: No Patient History - Patient Medical History Hx Anemia: No Hx Asthma: No Hx Chronic Obstructive Pulmonary Disease (COPD): No Hx Cancer: No Hx Cardiac Disorders: No Hx Congestive Heart Failure: No Hx Hypertension: No Hx Hypercholesterolemia: No Hx Pacemaker: No HX Cerebrovascular Accident: No Hx Seizures: No Hx Dementia: No Hx Diabetes: No Hx Gastrointestinal Disorders: No Hx Liver Disease: Yes (LIVER CIRRHOSIS) Hx Genitourinary Disorders: No Hx Sexually Transmitted Disorders: Yes (syphilis at age 16) Hx Renal Disease (ESRD): No Hx Thyroid Disease: No Hx Human Immunodeficiency Virus (HIV): No (NEGATIVE HX) Hx Hepatitis C: Yes Hx Depression: Yes Hx Suicide Attempt: No Hx Bipolar Disorder: No Hx Schizophrenia: Yes (schizoaffective disorder) - Patient Surgical History Past Surgical History: Yes Hx Neurologic Surgery: No Hx Cataract Extraction: No Hx Cardiac Surgery: No Hx Lung Surgery: No Hx Breast Surgery: No Hx Breast Biopsy: No Hx Abdominal Surgery: No Hx Appendectomy: No Hx Cholecystectomy: No Hx Genitourinary Surgery: Yes (right testicular sx as a child) Hx Section: No Hx Orthopedic Surgery: No Anesthesia Reaction: No - PPD History Date: 09/19/17 Results: 0 mm - Smoking Cessation Smoking history: Current every day smoker Have you smoked in the past 12 months: Yes Aproximately how many cigarettes per day: 8 Cigars Per Day: 0 Hx Chewing Tobacco Use: No - Substances abused Crack Substance route: Smoking Frequency: 3-6 times per week Amount used: $250 Age of first use: 23 Date of last use: 12/26/18 Marijuana/Hashish Substance route: Smoking Frequency: 1-2 times per week Amount used: $10 Age of first use: 16 Date of last use: 12/19/18 Alcohol Substance route: Smoking Frequency: Daily Amount used: (2) 6 packs of beer and a pint of vodka Age of first use: 13 Date of last use: 01/02/19 Admission Physical Exam S - Vital Signs Vital Signs: Vital Signs - 24 hr 01/02/19 12:39 Temperature 98.4 F Pulse Rate 82 Respiratory 18 Rate Blood Pressure 145/91 - Physical General Appearance: Yes: Within Normal Limits HEENTM: Yes: Hearing grossly Normal, Normocephalic, PROSPER Respiratory: Yes: Lungs Clear, Normal Breath Sounds Neck: Yes: Within Normal Limits Cardiology: Yes: Regular Rhythm, S1, S2 Abdominal: Yes: Within Normal Limits, Normal Bowel Sounds Back: Yes: Within Normal Limits Extremities: Yes: Tremors Neurological: Yes: heavy duty custodian II-XII NML intact, Fully Oriented, Alert Breathalyzer - Breathalyzer Breathalyzer: 0 Urine Drug Screen - Test Device Lot number: [id number] Expiration date: 08/11/20 - Control Is test valid?: Yes - Results Drug screen NEGATIVE: Yes
[2019-01-02] MEDS ORDERED: P-EPHED 60MG/TRIPROLIDI 2.5MG TABLET PO PRN (15:33)
[2019-01-02] MEDS ORDERED: MENTHOL/PHENOL 1 EACH UD MM PRN (15:33)
[2019-01-02] MEDS ORDERED: IBUPROFEN 400 MG TABLET (FP) PO PRN (15:33)
[2019-01-02] MEDS ORDERED: MAG HYDROX/AL HYDROX/SIMETH 30 ML UNIT-DOSE CUP PO PRN (15:33)
[2019-01-02] MEDS ORDERED: guaiFENesin 200 MG/10 ML 10 ML UNIT-DOSE CUPS PO PRN (15:33)
[2019-01-02] MEDS ORDERED: LOPERAMIDE HCL 2 MG CAPSULE PO PRN (15:33)
[2019-01-02] MEDS ORDERED: MAGNESIUM CITRATE 300 ML BOTTLE PO PRN (15:33)
[2019-01-02] MEDS ORDERED: MAGNESIUM HYDROX 2400MG/30ML ORAL SUSPENSION 30 ML CUP PO PRN (15:33)
[2019-01-02] MEDS: THIAMINE HCL 100 MG TABLET (FP) PO SCH (21:45)
[2019-01-03 00:01] LABS: URINE APPEARANCE CLEAR; URINE BILIRUBIN NEGATIVE (NEGATIVE); URINE COLOR YELLOW; URINE GLUCOSE (UA) NEGATIVE (NEGATIVE); URINE KETONE NEGATIVE (NEGATIVE); URINE LEUK ESTERASE NEGATIVE (NEGATIVE); URINE NITRITE NEGATIVE (NEGATIVE); URINE PROTEIN NEGATIVE (NEGATIVE)
[2019-01-03] MEDS: PRENATAL VITAMINS W/ FOLIC ACID TABLET (FP) PO SCH (10:36)
[2019-01-03 11:40] LABS: HEMATOCRIT 40.2 % (35.4-49); MCH 27.6 pg (25.7-33.7); MCHC 32.4 g/dl (32.0-35.9); MEAN CELL VOLUME 85.1 fl (80-96); MEAN PLT VOLUME 8.5 fl (7.5-11.1); PLATELET COUNT 269 K/MM3 (134-434); RBC 4.72 M/mm3 (4.00-5.60); RDW 16.4 % (11.9-15.9); WHITE BLOOD COUNT 5.6 K/mm3 (4.0-10.0)
[2019-01-03 11:56] LABS: ALBUMIN 3.7 g/dl (3.4-5.0); BILIRUBIN,TOTAL 0.3 mg/dL (0.2-1); BLOOD UREA NITROGEN 21.8 mg/dL (7-18); CALCIUM 9.1 mg/dL (8.5-10.1); CREATININE 1.3 mg/dL (0.55-1.3); POTASSIUM 4.4 mmol/L (3.5-5.1)
[2019-01-03 12:07] LABS: RPR REACTIVE 1:2 (NONREACTIVE)
[2019-01-03 12:08] LABS: TREPONEMA ANTIBODY PREVIOUSLY REACTIVE (NONREACTIVE)
--- NOTE | 2019-01-03 15:26 | PN ---
[facility] Progress Note (SOAP) Subjective: patient with positive RPR. States he is aware that he has syphilis. Started treatment in previous program but did not complete it because he came to this program. Objective: P/E General: no apparent distress Skin: no s/s of rash Neuro: CN 2-12 intact 01/03/19 15:23 Abnormal Lab Results 01/03/19 01/03/19 01/03/19 09:06 09:06 09:06 RDW 16.4 H BUN 21.8 H Random Glucose 138 H RPR Titer Reactive 1:2 H Assessment: syphilis 01/03/19 15:25 Plan: Doxycycline 100 BID for 14 days started. Explained the importance of completing treatment and patient agreed to continue medication when discharged.
[2019-01-03] MEDS: DOXYCYCLINE HYCLATE 100 MG TABLET PO SCH (17:11)
[2019-01-03] MEDS: THIAMINE HCL 100 MG TABLET (FP) PO SCH (21:24)
[2019-01-04] MEDS: PRENATAL VITAMINS W/ FOLIC ACID TABLET (FP) PO SCH (09:37)
[2019-01-04] MEDS: DOXYCYCLINE HYCLATE 100 MG TABLET PO SCH ×2 (09:37→17:19)
[2019-01-04] MEDS: THIAMINE HCL 100 MG TABLET (FP) PO SCH (22:09)
[2019-01-05] MEDS: DOXYCYCLINE HYCLATE 100 MG TABLET PO SCH ×2 (09:32→17:13)
[2019-01-05] MEDS: PRENATAL VITAMINS W/ FOLIC ACID TABLET (FP) PO SCH (09:32)
[2019-01-05] MEDS ORDERED: PT OWN MED DRAWER 7, Y5N ONE (17:13)
[2019-01-05] MEDS: THIAMINE HCL 100 MG TABLET (FP) PO SCH (21:48)
[2019-01-06 00:06] LABS: HEP B CORE AB, TOT Positive (Negative)
[2019-01-06] MEDS: PRENATAL VITAMINS W/ FOLIC ACID TABLET (FP) PO SCH (10:24)
[2019-01-06] MEDS: DOXYCYCLINE HYCLATE 100 MG TABLET PO SCH ×2 (10:24→17:40)
[2019-01-06] MEDS: THIAMINE HCL 100 MG TABLET (FP) PO SCH (22:20)
[2019-01-07] MEDS: PRENATAL VITAMINS W/ FOLIC ACID TABLET (FP) PO SCH (09:34)
[2019-01-07] MEDS: DOXYCYCLINE HYCLATE 100 MG TABLET PO SCH ×2 (09:34→18:01)
[2019-01-07] MEDS ORDERED: PT OWN MED DRAWER 7, Y5N ONE (18:00)
[2019-01-07] MEDS: THIAMINE HCL 100 MG TABLET (FP) PO SCH (21:34)
[2019-01-08] MEDS: PRENATAL VITAMINS W/ FOLIC ACID TABLET (FP) PO SCH (09:35)
--- NOTE | 2019-01-08 10:32 | PN ---
[facility] Progress Note Note: Laboratory Tests 01/02/19 01/03/19 01/03/19 19:00 09:06 09:06 WBC 5.6 RBC 4.72 Hgb 13.0 Hct 40.2 MCV 85.1 MCH 27.6 MCHC 32.4 RDW 16.4 H Plt Count 269 MPV 8.5 Sodium 141 Potassium 4.4 Chloride 107 Carbon Dioxide 25 Anion Gap 9 BUN 21.8 H Creatinine 1.3 Est GFR (CKD-EPI)AfAm 68.74 Est GFR (CKD-EPI)NonAf 59.31 Random Glucose 138 H Calcium 9.1 Total Bilirubin 0.3 AST 17 ALT 32 Alkaline Phosphatase 67 Total Protein 7.0 Albumin 3.7 Urine Color Yellow Urine Appearance Clear Urine pH 6.0 Ur Specific [place] 1.026 Urine Protein Negative Urine Glucose (UA) Negative Urine Ketones Negative Urine Blood Negative Urine Nitrite Negative Urine Bilirubin Negative Urine Urobilinogen 1.0 Ur Leukocyte Esterase Negative RPR Titer T.pallidum Ab (MHA) Hep A IgM Ab Confirm Hepatitis A Ab Total Hep Bs Antigen Hep Bs Antibody Hep B Core Total Ab Hep B Core IgM Ab Hepatitis Be Antibody Hepatitis Be Antigen Hep C Ab Diagnostic HIV 1&2 Antibody Screen HIV P24 Antigen 01/03/19 01/03/19 01/04/19 09:06 09:06 08:50 WBC RBC Hgb Hct MCV MCH MCHC RDW Plt Count MPV Sodium Potassium Chloride Carbon Dioxide Anion Gap BUN Creatinine Est GFR (CKD-EPI)AfAm Est GFR (CKD-EPI)NonAf Random Glucose Calcium Total Bilirubin AST ALT Alkaline Phosphatase Total Protein Albumin Urine Color Urine Appearance Urine pH Ur Specific [place] Urine Protein Urine Glucose (UA) Urine Ketones Urine Blood Urine Nitrite Urine Bilirubin Urine Urobilinogen Ur Leukocyte Esterase RPR Titer Reactive 1:2 H T.pallidum Ab (MHA) Previously reactive Hep A IgM Ab Confirm Negative Hepatitis A Ab Total Positive H Hep Bs Antigen Positive H Hep Bs Antibody Non reactive Hep B Core Total Ab Positive H Hep B Core IgM Ab Negative Hepatitis Be Antibody Positive H Hepatitis Be Antigen Negative Hep C Ab Diagnostic HIV 1&2 Antibody Screen Negative HIV P24 Antigen Negative 01/04/19 08:50 WBC RBC Hgb Hct MCV MCH MCHC RDW Plt Count MPV Sodium Potassium Chloride Carbon Dioxide Anion Gap BUN Creatinine Est GFR (CKD-EPI)AfAm Est GFR (CKD-EPI)NonAf Random Glucose Calcium Total Bilirubin AST ALT Alkaline Phosphatase Total Protein Albumin Urine Color Urine Appearance Urine pH Ur Specific [place] Urine Protein Urine Glucose (UA) Urine Ketones Urine Blood Urine Nitrite Urine Bilirubin Urine Urobilinogen Ur Leukocyte Esterase RPR Titer T.pallidum Ab (MHA) Hep A IgM Ab Confirm Hepatitis A Ab Total Hep Bs Antigen Hep Bs Antibody Hep B Core Total Ab Hep B Core IgM Ab Hepatitis Be Antibody Hepatitis Be Antigen Hep C Ab Diagnostic <0.1 HIV 1&2 Antibody Screen HIV P24 Antigen Lab results reviewed with patient . Patient currently on Doxycycline for +RPR. Patient explained meaning of results and provider answered all of patient questions. Safe sex counseling/STD precaution counseling provided by director underwriter sales with patient verbalization of understanding. Patient to continue treatment as ordered.
[2019-01-08] MEDS: DOXYCYCLINE HYCLATE 100 MG TABLET PO SCH ×2 (10:45→17:26)
[2019-01-08] MEDS: THIAMINE HCL 100 MG TABLET (FP) PO SCH (21:18)
[2019-01-08] MEDS: MELATONIN 5 MG TABLETS PO PRN (21:18)
[2019-01-09] MEDS: PRENATAL VITAMINS W/ FOLIC ACID TABLET (FP) PO SCH (09:59)
[2019-01-09] MEDS: DOXYCYCLINE HYCLATE 100 MG TABLET PO SCH ×2 (10:02→17:41)
[2019-01-09] MEDS: AMMONIUM LACTATE 12% LOTION 225 GM BOTTLE TP PRN (14:51)
[2019-01-09] MEDS ORDERED: PT OWN MED DRAWER 7, Y5N ONE (17:36)
[2019-01-09] MEDS: MELATONIN 5 MG TABLETS PO PRN (21:27)
[2019-01-09] MEDS: THIAMINE HCL 100 MG TABLET (FP) PO SCH (21:27)
[2019-01-10] MEDS ORDERED: PT OWN MED DRAWER 7, Y5N ONE ×4 (08:47→21:42)
[2019-01-10] MEDS: DOXYCYCLINE HYCLATE 100 MG TABLET PO SCH ×2 (09:33→17:03)
[2019-01-10] MEDS: PRENATAL VITAMINS W/ FOLIC ACID TABLET (FP) PO SCH (09:33)
--- NOTE | 2019-01-10 16:06 | PN ---
[facility] Progress Note Note: patient requested hepatitis panel. Was reactive to syphilis and at risk for sexually transmitted diseases. Panel indicated that patient was chronically infected with HEP B, which patient admitted once lab test was reviewed. P/D; General: no apparent distress Lungs: clear Heart: s1 s2 Abd: +BS, non-tender, non-distended Neuro: CN 2-12 intact Vital Signs Period Temp Pulse Resp BP Sys/Blas Pulse Ox Last 24 Hr 97.8 F 73 18-18 110/74 Laboratory Last Values WBC 5.6 K/mm3 (4.0-10.0) 01/03/19 09:06 RBC 4.72 M/mm3 (4.00-5.60) 01/03/19 09:06 Hgb 13.0 GM/dL (11.7-16.9) 01/03/19 09:06 Hct 40.2 % (35.4-49) 01/03/19 09:06 MCV 85.1 fl (80-96) 01/03/19 09:06 MCH 27.6 pg (25.7-33.7) 01/03/19 09:06 MCHC 32.4 g/dl (32.0-35.9) 01/03/19 09:06 RDW 16.4 % (11.9-15.9) H 01/03/19 09:06 Plt Count 269 K/MM3 (134-434) 01/03/19 09:06 MPV 8.5 fl (7.5-11.1) 01/03/19 09:06 Sodium 141 mmol/L (136-145) 01/03/19 09:06 Potassium 4.4 mmol/L (3.5-5.1) 01/03/19 09:06 Chloride 107 mmol/L (98-107) 01/03/19 09:06 Carbon Dioxide 25 mmol/L (21-32) 01/03/19 09:06 Anion Gap 9 MMOL/L (8-16) 01/03/19 09:06 BUN 21.8 mg/dL (7-18) H 01/03/19 09:06 Creatinine 1.3 mg/dL (0.55-1.3) 01/03/19 09:06 Est GFR (CKD-EPI)AfAm 68.74 01/03/19 09:06 Est GFR (CKD-EPI)NonAf 59.31 01/03/19 09:06 Random Glucose 138 mg/dL (74-106) H 01/03/19 09:06 Calcium 9.1 mg/dL (8.5-10.1) 01/03/19 09:06 Total Bilirubin 0.3 mg/dL (0.2-1) 01/03/19 09:06 AST 17 U/L (15-37) 01/03/19 09:06 ALT 32 U/L (13-61) 01/03/19 09:06 Alkaline Phosphatase 67 U/L (45-117) 01/03/19 09:06 Total Protein 7.0 g/dl (6.4-8.2) 01/03/19 09:06 Albumin 3.7 g/dl (3.4-5.0) 01/03/19 09:06 Urine Color Yellow 01/02/19 19:00 Urine Appearance Clear 01/02/19 19:00 Urine pH 6.0 (5.0-8.0) 01/02/19 19:00 Ur Specific [place] 1.026 (1.010-1.035) 01/02/19 19:00 Urine Protein Negative (NEGATIVE) 01/02/19 19:00 Urine Glucose (UA) Negative (NEGATIVE) 01/02/19 19:00 Urine Ketones Negative (NEGATIVE) 01/02/19 19:00 Urine Blood Negative (NEGATIVE) 01/02/19 19:00 Urine Nitrite Negative (NEGATIVE) 01/02/19 19:00 Urine Bilirubin Negative (NEGATIVE) 01/02/19 19:00 Urine Urobilinogen 1.0 mg/dL (0.2-1.0) 01/02/19 19:00 Ur Leukocyte Esterase Negative (NEGATIVE) 01/02/19 19:00 RPR Titer Reactive 1:2 (NONREACTIVE) H 01/03/19 09:06 T.pallidum Ab (MHA) Previously reactive (NONREACTIVE) 01/03/19 09:06 Hep A IgM Ab Confirm Negative (Negative) 01/04/19 08:50 Hepatitis A Ab Total Positive (Negative) H 01/04/19 08:50 Hep Bs Antigen Positive (Negative) H 01/04/19 08:50 Hep Bs Antibody Non reactive (.) 01/04/19 08:50 Hep B Core Total Ab Positive (Negative) H 01/04/19 08:50 Hep B Core IgM Ab Negative (Negative) 01/04/19 08:50 Hepatitis Be Antibody Positive (Negative) H 01/04/19 08:50 Hepatitis Be Antigen Negative (Negative) 01/04/19 08:50 Hep C Ab Diagnostic <0.1 s/co ratio (0.0-0.9) 01/04/19 08:50 HIV 1&2 Antibody Screen Negative 01/03/19 09:06 HIV P24 Antigen Negative 01/03/19 09:06 Assessment: Chronic HEP B infection Plan: advised patient to follow up with primary care provider for further evaluation and treatment.
[2019-01-10] MEDS: MELATONIN 5 MG TABLETS PO PRN (21:21)
[2019-01-10] MEDS: THIAMINE HCL 100 MG TABLET (FP) PO SCH (21:21)
[2019-01-11] MEDS ORDERED: PT OWN MED DRAWER 7, Y5N ONE (09:04)
[2019-01-11] MEDS: DOXYCYCLINE HYCLATE 100 MG TABLET PO SCH ×2 (09:41→17:00)
[2019-01-11] MEDS: PRENATAL VITAMINS W/ FOLIC ACID TABLET (FP) PO SCH (09:41)
[2019-01-11] MEDS: THIAMINE HCL 100 MG TABLET (FP) PO SCH (21:29)
[2019-01-12] MEDS: PRENATAL VITAMINS W/ FOLIC ACID TABLET (FP) PO SCH (09:39)
[2019-01-12] MEDS: DOXYCYCLINE HYCLATE 100 MG TABLET PO SCH ×2 (09:39→17:09)
--- NOTE | 2019-01-12 10:24 | PN ---
[facility] Progress Note Note: REviewed labs with pt- Hep B results and liver tests. Pt was noted to have HepB- chronic, with HbSag pos and HBe pos. Nl LFT's. d/w pt that he needs to f/u with PCP for further evaluation and possible treatment. pt will talk to counselor re PCP
[2019-01-12] MEDS: MELATONIN 5 MG TABLETS PO PRN (21:13)
[2019-01-12] MEDS: THIAMINE HCL 100 MG TABLET (FP) PO SCH (21:13)
[2019-01-13] MEDS: AMMONIUM LACTATE 12% LOTION 225 GM BOTTLE TP PRN (06:37)
[2019-01-13] MEDS ORDERED: PT OWN MED DRAWER 7, Y5N ONE (06:38)
[2019-01-13] MEDS: PRENATAL VITAMINS W/ FOLIC ACID TABLET (FP) PO SCH (09:42)
[2019-01-13] MEDS: DOXYCYCLINE HYCLATE 100 MG TABLET PO SCH ×2 (09:42→17:30)
[2019-01-13] MEDS: THIAMINE HCL 100 MG TABLET (FP) PO SCH (21:23)
[2019-01-13] MEDS: MELATONIN 5 MG TABLETS PO PRN (21:23)
[2019-01-14] MEDS: PRENATAL VITAMINS W/ FOLIC ACID TABLET (FP) PO SCH (10:08)
[2019-01-14] MEDS: DOXYCYCLINE HYCLATE 100 MG TABLET PO SCH ×2 (10:08→17:04)
[2019-01-14] MEDS ORDERED: PT OWN MED DRAWER 7, Y5N ONE (14:21)
[2019-01-14] MEDS: MELATONIN 5 MG TABLETS PO PRN (21:25)
[2019-01-14] MEDS: THIAMINE HCL 100 MG TABLET (FP) PO SCH (21:25)
[2019-01-15] MEDS: PRENATAL VITAMINS W/ FOLIC ACID TABLET (FP) PO SCH (10:49)
[2019-01-15] MEDS: THIAMINE HCL 100 MG TABLET (FP) PO SCH (21:37)
[2019-01-16] MEDS: PRENATAL VITAMINS W/ FOLIC ACID TABLET (FP) PO SCH (11:38)
--- NOTE | 2019-01-16 16:33 | DS ---
[facility] Rehab Discharge Summary - [facility] Rehab Discharge Summary Admission Date: 01/02/19 Discharge Date: 01/17/19 - History Present History: Alcohol dependence, Cannabis dependence, Cocaine dependence Additional Comments: Pt is a 58 y/o male with a hx of MARY LOU admitted to rehab and discharging on . Pertinent Past History: Hep C Liver Cirrhosis - Discharge Physical Exam Vital Signs: Vital Signs Temperature 98.1 F 01/16/19 07:21 Pulse Rate 78 01/16/19 07:21 Respiratory Rate 18 01/16/19 07:21 Blood Pressure 118/73 01/16/19 07:21 O2 Sat by Pulse Oximetry (%) Alert o x 3 nad oob ambulating with steady gait cardiac:s1 s2,rrr lungs:cta,manny. abdomen:soft,+bs,nt,nd extremities/skin:no edema,full ROM,skin intact. Pertinent Admission Physical Exam Findings: Laboratory Tests 01/02/19 01/03/19 01/03/19 19:00 09:06 09:06 WBC 5.6 RBC 4.72 Hgb 13.0 Hct 40.2 MCV 85.1 MCH 27.6 MCHC 32.4 RDW 16.4 H Plt Count 269 MPV 8.5 Sodium 141 Potassium 4.4 Chloride 107 Carbon Dioxide 25 Anion Gap 9 BUN 21.8 H Creatinine 1.3 Est GFR (CKD-EPI)AfAm 68.74 Est GFR (CKD-EPI)NonAf 59.31 Random Glucose 138 H Calcium 9.1 Total Bilirubin 0.3 AST 17 ALT 32 Alkaline Phosphatase 67 Total Protein 7.0 Albumin 3.7 Urine Color Yellow Urine Appearance Clear Urine pH 6.0 Ur Specific [place] 1.026 Urine Protein Negative Urine Glucose (UA) Negative Urine Ketones Negative Urine Blood Negative Urine Nitrite Negative Urine Bilirubin Negative Urine Urobilinogen 1.0 Ur Leukocyte Esterase Negative RPR Titer T.pallidum Ab (MHA) Hep A IgM Ab Confirm Hepatitis A Ab Total Hep Bs Antigen Hep Bs Antibody Hep B Core Total Ab Hep B Core IgM Ab Hepatitis Be Antibody Hepatitis Be Antigen Hep C Ab Diagnostic HIV 1&2 Antibody Screen HIV P24 Antigen 01/03/19 01/03/19 01/04/19 09:06 09:06 08:50 WBC RBC Hgb Hct MCV MCH MCHC RDW Plt Count MPV Sodium Potassium Chloride Carbon Dioxide Anion Gap BUN Creatinine Est GFR (CKD-EPI)AfAm Est GFR (CKD-EPI)NonAf Random Glucose Calcium Total Bilirubin AST ALT Alkaline Phosphatase Total Protein Albumin Urine Color Urine Appearance Urine pH Ur Specific [place] Urine Protein Urine Glucose (UA) Urine Ketones Urine Blood Urine Nitrite Urine Bilirubin Urine Urobilinogen Ur Leukocyte Esterase RPR Titer Reactive 1:2 H T.pallidum Ab (MHA) Previously reactive Hep A IgM Ab Confirm Negative Hepatitis A Ab Total Positive H Hep Bs Antigen Positive H Hep Bs Antibody Non reactive Hep B Core Total Ab Positive H Hep B Core IgM Ab Negative Hepatitis Be Antibody Positive H Hepatitis Be Antigen Negative Hep C Ab Diagnostic HIV 1&2 Antibody Screen Negative HIV P24 Antigen Negative 01/04/19 08:50 WBC RBC Hgb Hct MCV MCH MCHC RDW Plt Count MPV Sodium Potassium Chloride Carbon Dioxide Anion Gap BUN Creatinine Est GFR (CKD-EPI)AfAm Est GFR (CKD-EPI)NonAf Random Glucose Calcium Total Bilirubin AST ALT Alkaline Phosphatase Total Protein Albumin Urine Color Urine Appearance Urine pH Ur Specific [place] Urine Protein Urine Glucose (UA) Urine Ketones Urine Blood Urine Nitrite Urine Bilirubin Urine Urobilinogen Ur Leukocyte Esterase RPR Titer T.pallidum Ab (MHA) Hep A IgM Ab Confirm Hepatitis A Ab Total Hep Bs Antigen Hep Bs Antibody Hep B Core Total Ab Hep B Core IgM Ab Hepatitis Be Antibody Hepatitis Be Antigen Hep C Ab Diagnostic <0.1 HIV 1&2 Antibody Screen HIV P24 Antigen Pt was instructed to follow up with his medical provider with copy of lab result for medical management. - Treatment Discharge Condition: Discharge condition good Hospital Course: Rehabilitated safely and responded well CD aftercare referral accepted. - Medication Discharge Medications: Ambulatory Orders NK [No Known Home Medication] 01/23/17 - Medication-Assisted Treatment (MAT) Medication-Assisted Treatment (MAT): No - Discharge Instructions Diet, activity, other medical instructions: Diet:Regular Activity: oob ad meek Other medical instructions:follow up with CD aftercare with [facility] as recommended. - Diagnosis (1) Nicotine dependence Status: Chronic Qualifiers: Nicotine product type: cigarettes Substance use status: uncomplicated Qualified Code(s): F17.210 - Nicotine dependence, cigarettes, uncomplicated (2) Alcohol dependence Status: Chronic (3) Cirrhosis of liver Status: Chronic Qualifiers: Ascites presence: unspecified (4) Cocaine dependence Status: Chronic (5) Hepatitis C Status: Chronic Qualifiers: Viral hepatitis chronicity: unspecified (6) Marijuana abuse Status: Chronic (7) Nicotine dependence Status: Chronic - Follow-up Referral Minutes to complete discharge: 25 - AMA Did Patient Leave Against Medical Advice: No
[2019-01-16] MEDS: MELATONIN 5 MG TABLETS PO PRN (21:24)
[2019-01-16] MEDS: THIAMINE HCL 100 MG TABLET (FP) PO SCH (21:24)
[2019-01-17 07:04] VITALS: BP 106/67; PULSE 70; TEMP 97.4
[2019-01-17] MEDS ORDERED: PT OWN MED DRAWER 7, Y5N ONE (08:25)
--- NOTE | 2019-01-17 13:56 | PN ---
S Progress Note Note: Pt was discharged today as scheduled in medically stable condition. Vital Signs - 24 hr 01/17/19 01/17/19 00:30 07:03 Temperature 97.4 F L Pulse Rate 70 Respiratory 18 18 Rate Blood Pressure 106/67 D/w patient to follow up with referrals as scheduled.
== END 2019-01-17 08:30 | disposition home or self-care (01) | DRG 772 ==
LOC: YASAS 11:26 → Y3W 15:06
PROVIDERS: ADMIT Neuromusculoskeletal Medicine & OMM; ATTEND Neuromusculoskeletal Medicine & OMM
PROC: HZ42ZZZ Group Counseling for Substance Abuse Treatment, Cognitive-Behavioral (ICD-10-PCS; principal; 2019-01-02)
DX: F10.20 Alcohol dependence, uncomplicated (principal); F14.20 Cocaine dependence, uncomplicated; F12.10 Cannabis abuse, uncomplicated; F17.210 Nicotine dependence, cigarettes, uncomplicated; K74.60 Unspecified cirrhosis of liver; B18.1 Chronic viral hepatitis B without delta-agent; A53.9 Syphilis, unspecified; Z88.0 Allergy status to penicillin; Z88.6 Allergy status to analgesic agent
CPT/HCPCS: 36415; 80053; 81003; 85027; 86593; 86704; 86706; 86707; 86708; 86709; 86780; 86803; 87340; 87389

== ENCOUNTER 2020-10-07 17:35 | Inpatient (IN) | payer OTHER ==
[2020-10-07 22:50] VITALS: BMI 32.5
[2020-10-07] MEDS ORDERED: MAG HYDROX/AL HYDROX/SIMETH 30 ML UNIT-DOSE CUP PO PRN (23:09)
[2020-10-07] MEDS ORDERED: LOPERAMIDE HCL 2 MG CAPSULE PO PRN (23:09)
[2020-10-07] MEDS ORDERED: MAGNESIUM HYDROX 2400MG/30ML ORAL SUSPENSION 30 ML CUP PO PRN (23:09)
[2020-10-07] MEDS ORDERED: NICOTINE POLACRILEX 2 MG GUM BC PRN (23:09)
[2020-10-07] MEDS ORDERED: guaiFENesin 200 MG/10 ML 10 ML UNIT-DOSE CUPS PO PRN (23:09)
[2020-10-07] MEDS ORDERED: P-EPHED 60MG/TRIPROLIDI 2.5MG TABLET PO PRN (23:09)
[2020-10-07] MEDS ORDERED: MAGNESIUM CITRATE 300 ML BOTTLE PO PRN (23:09)
[2020-10-07] MEDS ORDERED: IBUPROFEN 400 MG TABLET (FP) PO PRN (23:09)
[2020-10-08] MEDS: MELATONIN 5 MG TABLETS PO SCH ×2 (00:02→21:23)
[2020-10-08] MEDS ORDERED: TUBERCULIN PPD 5 TU/0.1ML VIAL ID ONE ×2 (02:30→07:20)
[2020-10-08] MEDS: NICOTINE 14 MG/24 HOURS TOPICAL PATCH TD SCH (09:47)
[2020-10-08] MEDS: PRENATAL VITAMINS W/ FOLIC ACID TABLET (FP) PO SCH ×2 (09:48)
[2020-10-08 10:06] LABS: MCH 26.9 pg (25.7-33.7); MCHC 32.5 g/dl (32.0-35.9); MEAN CELL VOLUME 82.8 fl (80-96); MEAN PLT VOLUME 8.4 fl (7.5-11.1); PLATELET COUNT 270 10^3/uL (134-434); RBC 4.47 M/mm3 (4.00-5.60); WHITE BLOOD COUNT 6.5 K/mm3 (4.0-10.0)
[2020-10-08 10:15] LABS: ALBUMIN 3.5 g/dl (3.4-5.0)
[2020-10-08 10:16] LABS: BILIRUBIN,TOTAL 0.2 mg/dL (0.2-1); TOT PROT 6.7 g/dl (6.4-8.2)
[2020-10-08 10:23] LABS: CALCIUM 8.9 mg/dL (8.5-10.1)
[2020-10-08] MEDS: THIAMINE HCL 100 MG TABLET (FP) PO SCH (21:24)
[2020-10-09] MEDS: PRENATAL VITAMINS W/ FOLIC ACID TABLET (FP) PO SCH (09:54)
[2020-10-09] MEDS: NICOTINE 14 MG/24 HOURS TOPICAL PATCH TD SCH (09:54)
[2020-10-09] MEDS: MELATONIN 5 MG TABLETS PO SCH (21:44)
[2020-10-09] MEDS: THIAMINE HCL 100 MG TABLET (FP) PO SCH (21:44)
[2020-10-10] MEDS: NICOTINE 14 MG/24 HOURS TOPICAL PATCH TD SCH (10:01)
[2020-10-10] MEDS: PRENATAL VITAMINS W/ FOLIC ACID TABLET (FP) PO SCH (10:01)
[2020-10-10] MEDS ORDERED: AMMONIUM LACTATE 12% LOTION 225 GM BOTTLE TP PRN (14:06)
[2020-10-10 14:47] LABS: URINE APPEARANCE CLEAR; URINE BILIRUBIN NEGATIVE (NEGATIVE); URINE COLOR YELLOW; URINE GLUCOSE (UA) NEGATIVE (NEGATIVE); URINE KETONE NEGATIVE (NEGATIVE); URINE LEUK ESTERASE NEGATIVE (NEGATIVE); URINE NITRITE NEGATIVE (NEGATIVE); URINE PROTEIN NEGATIVE (NEGATIVE); URINE UROBILINOGEN 0.2 mg/dL (0.2-1.0)
[2020-10-10] MEDS: MELATONIN 5 MG TABLETS PO SCH (22:59)
[2020-10-10] MEDS: THIAMINE HCL 100 MG TABLET (FP) PO SCH (23:00)
[2020-10-11] MEDS: NICOTINE 14 MG/24 HOURS TOPICAL PATCH TD SCH (10:35)
[2020-10-11] MEDS: PRENATAL VITAMINS W/ FOLIC ACID TABLET (FP) PO SCH (10:36)
[2020-10-11] MEDS: THIAMINE HCL 100 MG TABLET (FP) PO SCH (22:32)
[2020-10-11] MEDS: MELATONIN 5 MG TABLETS PO SCH (22:32)
[2020-10-12] MEDS: NICOTINE 14 MG/24 HOURS TOPICAL PATCH TD SCH (10:21)
[2020-10-12] MEDS: PRENATAL VITAMINS W/ FOLIC ACID TABLET (FP) PO SCH (10:21)
[2020-10-12] MEDS: THIAMINE HCL 100 MG TABLET (FP) PO SCH (22:02)
[2020-10-12] MEDS: MELATONIN 5 MG TABLETS PO SCH (22:02)
[2020-10-13 07:34] VITALS: BP 118/78; PULSE 79; TEMP 97.2
[2020-10-13] MEDS: NICOTINE 14 MG/24 HOURS TOPICAL PATCH TD SCH (10:41)
[2020-10-13] MEDS: PRENATAL VITAMINS W/ FOLIC ACID TABLET (FP) PO SCH (10:41)
== END 2020-10-13 11:25 | disposition home or self-care (01) | DRG 772 ==
LOC: YASAS 17:35 → Y5N 23:26
PROVIDERS: ADMIT Allergy & Immunology; ATTEND Allergy & Immunology
PROC: HZ42ZZZ Group Counseling for Substance Abuse Treatment, Cognitive-Behavioral (ICD-10-PCS; principal; 2020-10-07)
DX: F10.20 Alcohol dependence, uncomplicated (principal); F17.210 Nicotine dependence, cigarettes, uncomplicated; F64.9 Gender identity disorder, unspecified; F33.9 Major depressive disorder, recurrent, unspecified; F43.10 Post-traumatic stress disorder, unspecified; K74.60 Unspecified cirrhosis of liver; Z88.0 Allergy status to penicillin; Z88.6 Allergy status to analgesic agent; Z86.19 Personal history of other infectious and parasitic diseases; Z87.890 Personal history of sex reassignment
CPT/HCPCS: 36415; 80053; 81003; 85027; 86593; 86780; 93005; 93010; C9803; U0003; U0005

== ENCOUNTER 2020-11-30 08:56 | Inpatient (IN) | payer OTHER ==
[2020-11-30 09:31] VITALS: BMI 30.4
[2020-11-30] MEDS ORDERED: MAGNESIUM CITRATE 300 ML BOTTLE PO PRN (11:05)
[2020-11-30] MEDS ORDERED: BISMUTH SUBSALICYLATE 524 MG/30 ML PO PRN (11:05)
[2020-11-30] MEDS ORDERED: NICOTINE 10 MG CARTRIDGE (INHALER) IH PRN (11:05)
[2020-11-30] MEDS ORDERED: ACETAMINOPHEN 325 MG TABLET (FP) PO PRN ×2 (11:05)
[2020-11-30] MEDS ORDERED: METHOCARBAMOL 500 MG TABLET PO PRN (11:05)
[2020-11-30] MEDS ORDERED: IBUPROFEN 400 MG TABLET (FP) PO PRN (11:05)
[2020-11-30] MEDS ORDERED: MAGNESIUM HYDROX 2400MG/30ML ORAL SUSPENSION 30 ML CUP PO PRN (11:05)
[2020-11-30] MEDS ORDERED: MAG HYDROX/AL HYDROX/SIMETH 30 ML UNIT-DOSE CUP PO PRN (11:05)
[2020-11-30] MEDS ORDERED: MENTHOL/PHENOL 1 EACH UD MM PRN (11:05)
[2020-11-30] MEDS ORDERED: ONDANSETRON *ODT* 4 MG TABLET SL PRN (11:05)
[2020-11-30] MEDS ORDERED: LORazepam 1 MG TABLET PO PRN (11:05)
[2020-11-30] MEDS: hydrOXYzine PAMOATE 25 MG CAPSULE (FP) PO SCH ×3 (13:37→22:14)
[2020-11-30] MEDS: LORazepam 2 MG TABLET PO SCH ×2 (17:20→22:14)
[2020-11-30] MEDS: THIAMINE HCL 100 MG TABLET (FP) PO SCH (22:14)
[2020-11-30] MEDS: MELATONIN 5 MG TABLETS PO SCH (22:15)
[2020-12-01] MEDS: LORazepam 2 MG TABLET PO SCH ×4 (05:56→23:43)
[2020-12-01] MEDS: hydrOXYzine PAMOATE 25 MG CAPSULE (FP) PO SCH ×5 (05:56→23:44)
[2020-12-01] MEDS: PRENATAL VITAMINS W/ FOLIC ACID TABLET (FP) PO SCH (10:23)
[2020-12-01] MEDS ORDERED: cloNIDine HCL 0.1 MG TABLET PO PRN (10:23)
[2020-12-01 11:31] LABS: HEMATOCRIT 40.6 % (35.4-49); HEMOGLOBIN 13.5 GM/dL (11.7-16.9); MCH 27.3 pg (25.7-33.7); MCHC 33.3 g/dl (32.0-35.9); MEAN CELL VOLUME 81.9 fl (80-96); MEAN PLT VOLUME 8.5 fl (7.5-11.1); PLATELET COUNT 281 10^3/uL (134-434); RBC 4.95 M/mm3 (4.00-5.60); RDW 16.8 % (11.9-15.9); WHITE BLOOD COUNT 6.2 K/mm3 (4.0-10.0)
[2020-12-01 12:01] LABS: CALCIUM 9.1 mg/dL (8.5-10.1)
[2020-12-01 12:02] LABS: ALBUMIN 3.9 g/dl (3.4-5.0)
[2020-12-01 12:05] LABS: CREATININE 1.3 mg/dL (0.55-1.3)
[2020-12-01 12:06] LABS: BILIRUBIN,TOTAL 0.5 mg/dL (0.2-1)
[2020-12-01 12:07] LABS: TOT PROT 7.8 g/dl (6.4-8.2)
[2020-12-01 14:01] LABS: HIV INTERPRETATION NEGATIVE (NEGATIVE)
[2020-12-01] MEDS: MELATONIN 5 MG TABLETS PO SCH (23:44)
[2020-12-01] MEDS: THIAMINE HCL 100 MG TABLET (FP) PO SCH (23:44)
[2020-12-02] MEDS: LORazepam 1 MG TABLET PO SCH ×4 (05:18→23:49)
[2020-12-02] MEDS: hydrOXYzine PAMOATE 25 MG CAPSULE (FP) PO SCH ×5 (05:19→23:50)
[2020-12-02] MEDS: PRENATAL VITAMINS W/ FOLIC ACID TABLET (FP) PO SCH (10:52)
[2020-12-02] MEDS: MELATONIN 5 MG TABLETS PO SCH (23:49)
[2020-12-02] MEDS: THIAMINE HCL 100 MG TABLET (FP) PO SCH (23:50)
[2020-12-03] MEDS ORDERED: LORazepam 0.5 MG TABLET PO PRN
[2020-12-03] MEDS: LORazepam 0.5 MG TABLET PO SCH ×4 (05:54→22:36)
[2020-12-03] MEDS: hydrOXYzine PAMOATE 25 MG CAPSULE (FP) PO SCH ×5 (05:54→22:36)
[2020-12-03] MEDS: PRENATAL VITAMINS W/ FOLIC ACID TABLET (FP) PO SCH (10:43)
[2020-12-03] MEDS: DOXYCYCLINE HYCLATE 100 MG TABLET PO SCH ×2 (10:44→17:51)
[2020-12-03] MEDS: MELATONIN 5 MG TABLETS PO SCH (22:36)
[2020-12-03] MEDS: THIAMINE HCL 100 MG TABLET (FP) PO SCH (22:36)
[2020-12-04 03:38] VITALS: BP 123/77; PULSE 88; TEMP 97.5
[2020-12-04] MEDS ORDERED: LORazepam 0.5 MG TABLET PO ONE (05:00)
== END 2020-12-04 03:36 | disposition home or self-care (01) | DRG 774 ==
LOC: YASAS 08:56 → Y6N 11:01
PROVIDERS: ADMIT Allergy & Immunology; ATTEND Allergy & Immunology
PROC: HZ2ZZZZ Detoxification Services for Substance Abuse Treatment (ICD-10-PCS; principal; 2020-11-30)
DX: F10.230 Alcohol dependence with withdrawal, uncomplicated (principal); F14.20 Cocaine dependence, uncomplicated; F17.210 Nicotine dependence, cigarettes, uncomplicated; F19.24 Other psychoactive substance dependence with psychoactive substance-induced mood disorder; K59.00 Constipation, unspecified; M54.5 Low back pain; G89.29 Other chronic pain; Z86.69 Personal history of other diseases of the nervous system and sense organs; Z88.0 Allergy status to penicillin; Z88.6 Allergy status to analgesic agent
CPT/HCPCS: 36415; 80053; 85027; 86593; 86780; 87389; C9803; U0003; U0005

== ENCOUNTER 2021-08-25 08:19 | Inpatient (IN) | payer OTHER ==
[2021-08-25 08:44] VITALS: BMI 28.9
[2021-08-25] MEDS ORDERED: ACETAMINOPHEN 325 MG TABLET (FP) PO PRN ×2 (11:02)
[2021-08-25] MEDS ORDERED: MAGNESIUM CITRATE 300 ML BOTTLE PO PRN (11:02)
[2021-08-25] MEDS ORDERED: MAGNESIUM HYDROX 2400MG/30ML ORAL SUSPENSION 30 ML CUP PO PRN (11:02)
[2021-08-25] MEDS ORDERED: chlordiazePOXIDE HCL 25 MG CAPSULE PO PRN (11:02)
[2021-08-25] MEDS ORDERED: IBUPROFEN 400 MG TABLET (FP) PO PRN (11:02)
[2021-08-25] MEDS ORDERED: NICOTINE 10 MG CARTRIDGE (INHALER) IH PRN (11:02)
[2021-08-25] MEDS ORDERED: LOPERAMIDE HCL 2 MG CAPSULE PO PRN (11:02)
[2021-08-25] MEDS ORDERED: cloNIDine HCL 0.1 MG TABLET PO PRN (11:02)
[2021-08-25] MEDS ORDERED: NICOTINE POLACRILEX 4 MG GUM BUC PRN (11:02)
[2021-08-25] MEDS ORDERED: BENZOCAINE/MENTHOL (CHLORASEPTIC ) LOZENGE MM PRN (11:02)
[2021-08-25] MEDS ORDERED: BISMUTH SUBSALICYLATE 262 MG/15 ML BTL PO PRN (11:02)
[2021-08-25] MEDS ORDERED: IBUPROFEN 600 MG TABLET (FP) PO PRN (11:02)
[2021-08-25] MEDS ORDERED: MAG HYDROX/AL HYDROX/SIMETH 30 ML UNIT-DOSE CUP PO PRN (11:02)
[2021-08-25] MEDS ORDERED: METHOCARBAMOL 500 MG TABLET PO PRN (11:02)
[2021-08-25] MEDS ORDERED: methaDONE HCL 10 MG TABLET (FOR DETOX USE ONLY) PO ONE (11:02)
[2021-08-25] MEDS ORDERED: ONDANSETRON *ODT* 4 MG TABLET SL PRN (11:02)
[2021-08-25] MEDS ORDERED: DICYCLOMINE HCL 10 MG CAPSULE PO PRN (11:02)
[2021-08-25] MEDS: hydrOXYzine PAMOATE 25 MG CAPSULE (FP) PO SCH ×3 (13:34→22:12)
[2021-08-25] MEDS: chlordiazePOXIDE HCL 25 MG CAPSULE PO SCH ×3 (13:34→22:11)
[2021-08-25] MEDS: PRENATAL VITAMINS W/ FOLIC ACID TABLET (FP) PO SCH (13:34)
[2021-08-25 15:25] LABS: HEMATOCRIT 42.4 % (35.4-49); HEMOGLOBIN 13.7 GM/dL (11.7-16.9); MCH 27.5 pg (25.7-33.7); MCHC 32.4 g/dl (32.0-35.9); MEAN PLT VOLUME 8.2 fl (7.5-11.1); PLATELET COUNT 290 10^3/uL (134-434); RBC 4.98 M/mm3 (4.00-5.60); RDW 15.4 % (11.9-15.9); WHITE BLOOD COUNT 6.2 K/mm3 (4.0-10.0)
[2021-08-25 15:31] LABS: ALBUMIN 4.3 g/dl (3.4-5.0); BLOOD UREA NITROGEN 31.4 mg/dL (7-18); CALCIUM 9.3 mg/dL (8.5-10.1)
[2021-08-25 15:34] LABS: CREATININE 1.3 mg/dL (0.55-1.3)
[2021-08-25 15:36] LABS: BILIRUBIN,TOTAL 0.7 mg/dL (0.2-1); TOT PROT 8.6 g/dl (6.4-8.2)
[2021-08-25] MEDS: THIAMINE HCL 100 MG TABLET (FP) PO SCH (22:11)
[2021-08-25] MEDS: MELATONIN 5 MG TABLETS PO SCH (22:12)
[2021-08-26] MEDS: chlordiazePOXIDE HCL 25 MG CAPSULE PO SCH ×4 (06:24→22:43)
[2021-08-26] MEDS: hydrOXYzine PAMOATE 25 MG CAPSULE (FP) PO SCH ×5 (06:24→22:44)
[2021-08-26] MEDS ORDERED: methaDONE HCL 10 MG TABLET (FOR DETOX USE ONLY) ONE (09:29)
[2021-08-26] MEDS: PRENATAL VITAMINS W/ FOLIC ACID TABLET (FP) PO SCH (10:22)
[2021-08-26] MEDS: MELATONIN 5 MG TABLETS PO SCH (22:43)
[2021-08-26] MEDS: THIAMINE HCL 100 MG TABLET (FP) PO SCH (22:43)
[2021-08-27] MEDS: hydrOXYzine PAMOATE 25 MG CAPSULE (FP) PO SCH ×5 (06:30→22:50)
[2021-08-27] MEDS: chlordiazePOXIDE HCL 25 MG CAPSULE PO SCH ×4 (06:30→22:50)
[2021-08-27] MEDS ORDERED: methaDONE HCL 10 MG TABLET (FOR DETOX USE ONLY) PO ONE (10:00)
[2021-08-27] MEDS: PRENATAL VITAMINS W/ FOLIC ACID TABLET (FP) PO SCH (10:16)
[2021-08-27] MEDS: MELATONIN 5 MG TABLETS PO SCH (22:50)
[2021-08-27] MEDS: THIAMINE HCL 100 MG TABLET (FP) PO SCH (22:50)
[2021-08-28] MEDS ORDERED: chlordiazePOXIDE HCL 10 MG CAPSULE PO PRN
[2021-08-28] MEDS: chlordiazePOXIDE HCL 10 MG CAPSULE PO SCH ×4 (06:09→22:30)
[2021-08-28] MEDS: hydrOXYzine PAMOATE 25 MG CAPSULE (FP) PO SCH ×5 (06:09→22:29)
[2021-08-28] MEDS ORDERED: methaDONE HCL 10 MG TABLET (FOR DETOX USE ONLY) ONE (08:55)
[2021-08-28] MEDS: PRENATAL VITAMINS W/ FOLIC ACID TABLET (FP) PO SCH (10:16)
[2021-08-28] MEDS: MELATONIN 5 MG TABLETS PO SCH (22:29)
[2021-08-28] MEDS: THIAMINE HCL 100 MG TABLET (FP) PO SCH (22:29)
[2021-08-29] MEDS: chlordiazePOXIDE HCL 10 MG CAPSULE PO SCH ×2 (06:33→17:44)
[2021-08-29] MEDS: hydrOXYzine PAMOATE 25 MG CAPSULE (FP) PO SCH ×5 (06:33→22:18)
[2021-08-29] MEDS ORDERED: methaDONE HCL 10 MG TABLET (FOR DETOX USE ONLY) PO ONE (10:00)
[2021-08-29] MEDS: PRENATAL VITAMINS W/ FOLIC ACID TABLET (FP) PO SCH (10:41)
[2021-08-29] MEDS: MELATONIN 5 MG TABLETS PO SCH (22:19)
[2021-08-29] MEDS: THIAMINE HCL 100 MG TABLET (FP) PO SCH (22:19)
[2021-08-30] MEDS ORDERED: chlordiazePOXIDE HCL 10 MG CAPSULE PO ONE (05:00)
[2021-08-30] MEDS: hydrOXYzine PAMOATE 25 MG CAPSULE (FP) PO SCH ×5 (06:00→22:16)
[2021-08-30] MEDS: PRENATAL VITAMINS W/ FOLIC ACID TABLET (FP) PO SCH (10:25)
[2021-08-30] MEDS: MELATONIN 5 MG TABLETS PO SCH (22:16)
[2021-08-30] MEDS: THIAMINE HCL 100 MG TABLET (FP) PO SCH (22:16)
[2021-08-31] MEDS: hydrOXYzine PAMOATE 25 MG CAPSULE (FP) PO SCH ×2 (05:41→10:20)
[2021-08-31 09:03] VITALS: BP 130/79; PULSE 77; TEMP 98.4
[2021-08-31] MEDS: PRENATAL VITAMINS W/ FOLIC ACID TABLET (FP) PO SCH (10:20)
== END 2021-08-31 12:09 | disposition other institution (70) | DRG 773 ==
LOC: YASAS 08:19 → Y3N 12:47
PROVIDERS: ADMIT Allergy & Immunology; ATTEND Surgery
PROC: HZ2ZZZZ Detoxification Services for Substance Abuse Treatment (ICD-10-PCS; principal; 2021-08-25)
DX: F11.23 Opioid dependence with withdrawal (principal); F10.230 Alcohol dependence with withdrawal, uncomplicated; F14.20 Cocaine dependence, uncomplicated; F12.10 Cannabis abuse, uncomplicated; F17.210 Nicotine dependence, cigarettes, uncomplicated; K74.60 Unspecified cirrhosis of liver; B18.2 Chronic viral hepatitis C; Z28.310 Unvaccinated for COVID-19; Z86.19 Personal history of other infectious and parasitic diseases; Z88.0 Allergy status to penicillin; Z88.6 Allergy status to analgesic agent
CPT/HCPCS: 36415; 80053; 85027; 86593; 86780; C9803-CS; U0003; U0005

== ENCOUNTER 2022-03-06 08:20 | Inpatient (IN) | payer OTHER ==
[2022-03-06 09:47] VITALS: BMI 29.5
[2022-03-06] MEDS ORDERED: NICOTINE 10 MG CARTRIDGE (INHALER) IH PRN (10:20)
[2022-03-06] MEDS ORDERED: P-EPHED 60MG/TRIPROLIDI 2.5MG TABLET PO PRN (10:20)
[2022-03-06] MEDS ORDERED: POLYETHYLENE GLYCOL (HEALTHYLAX) 3350 17 GM PACKET PO PRN (10:20)
[2022-03-06] MEDS ORDERED: guaiFENesin 200 MG/10 ML 10 ML UNIT-DOSE CUPS PO PRN (10:20)
[2022-03-06] MEDS ORDERED: BENZOCAINE/MENTHOL (CHLORASEPTIC ) LOZENGE MM PRN (10:20)
[2022-03-06] MEDS ORDERED: hydrOXYzine PAMOATE 25 MG CAPSULE (FP) PO PRN (10:20)
[2022-03-06] MEDS ORDERED: MAG HYDROX/AL HYDROX/SIMETH 30 ML UNIT-DOSE CUP PO PRN (10:20)
[2022-03-06] MEDS ORDERED: MAGNESIUM HYDROX 2400MG/30ML ORAL SUSPENSION 30 ML CUP PO PRN (10:20)
[2022-03-06] MEDS ORDERED: LOPERAMIDE HCL 2 MG CAPSULE PO PRN (10:20)
[2022-03-06] MEDS ORDERED: ACETAMINOPHEN 325 MG TABLET (FP) PO PRN (10:20)
[2022-03-06] MEDS ORDERED: NICOTINE POLACRILEX 4 MG GUM BUC PRN (10:20)
[2022-03-06] MEDS ORDERED: IBUPROFEN 400 MG TABLET (FP) PO PRN (10:20)
[2022-03-06 13:00] VITALS: RESP 18
[2022-03-06 21:45] LABS: URINE APPEARANCE CLEAR; URINE BILIRUBIN NEGATIVE (NEGATIVE); URINE COLOR YELLOW; URINE GLUCOSE (UA) NEGATIVE (NEGATIVE); URINE KETONE NEGATIVE (NEGATIVE); URINE LEUK ESTERASE NEGATIVE (NEGATIVE); URINE NITRITE NEGATIVE (NEGATIVE); URINE PROTEIN NEGATIVE (NEGATIVE)
[2022-03-06] MEDS: MELATONIN 5 MG TABLETS PO SCH (23:06)
[2022-03-06] MEDS: THIAMINE HCL 100 MG TABLET (FP) PO SCH (23:06)
[2022-03-07] MEDS: PRENATAL VITAMINS W/ FOLIC ACID TABLET (FP) PO SCH (10:20)
[2022-03-07 10:36] LABS: HEMATOCRIT 42.8 % (35.4-49); HEMOGLOBIN 13.6 GM/dL (11.7-16.9); MCH 26.8 pg (25.7-33.7); MCHC 31.8 g/dl (32.0-35.9); MEAN CELL VOLUME 84.1 fl (80-96); PLATELET COUNT 291 10^3/uL (134-434); RBC 5.08 M/mm3 (4.00-5.60); RDW 15.8 % (11.9-15.9); WHITE BLOOD COUNT 5.4 K/mm3 (4.0-10.0)
[2022-03-07 10:45] LABS: CALCIUM 9.2 mg/dL (8.5-10.1)
[2022-03-07 10:46] LABS: ALBUMIN 3.6 g/dl (3.4-5.0); BLOOD UREA NITROGEN 17.5 mg/dL (7-18)
[2022-03-07 10:49] LABS: CREATININE 1.2 mg/dL (0.55-1.3)
[2022-03-07 10:50] LABS: BILIRUBIN,TOTAL 0.5 mg/dL (0.2-1); TOT PROT 7.3 g/dl (6.4-8.2)
[2022-03-07] MEDS: LACTULOSE 20 GM/30 ML UDC (FOR ORAL USE ONLY) PO SCH ×2 (12:34→21:41)
[2022-03-07 12:36] LABS: SYPHILIS W/ RPR CONF REACTIVE (NONREACTIVE)
[2022-03-07] MEDS: THIAMINE HCL 100 MG TABLET (FP) PO SCH (21:40)
[2022-03-07] MEDS: MELATONIN 5 MG TABLETS PO SCH (21:40)
[2022-03-08] MEDS: LACTULOSE 20 GM/30 ML UDC (FOR ORAL USE ONLY) PO SCH ×3 (10:39→21:21)
[2022-03-08] MEDS: PRENATAL VITAMINS W/ FOLIC ACID TABLET (FP) PO SCH (10:39)
[2022-03-08] MEDS: DOXYCYCLINE HYCLATE 100 MG TABLET PO SCH (17:55)
[2022-03-08] MEDS: THIAMINE HCL 100 MG TABLET (FP) PO SCH (21:21)
[2022-03-08] MEDS: MELATONIN 5 MG TABLETS PO SCH (21:22)
[2022-03-09] MEDS: LACTULOSE 20 GM/30 ML UDC (FOR ORAL USE ONLY) PO SCH ×3 (05:51→21:14)
[2022-03-09] MEDS: DOXYCYCLINE HYCLATE 100 MG TABLET PO SCH ×2 (09:41→18:14)
[2022-03-09] MEDS: MELATONIN 5 MG TABLETS PO SCH (21:15)
[2022-03-09] MEDS: THIAMINE HCL 100 MG TABLET (FP) PO SCH (21:15)
[2022-03-10] MEDS: LACTULOSE 20 GM/30 ML UDC (FOR ORAL USE ONLY) PO SCH ×3 (05:48→21:13)
[2022-03-10] MEDS: DOXYCYCLINE HYCLATE 100 MG TABLET PO SCH ×2 (09:56→18:16)
[2022-03-10] MEDS: MELATONIN 5 MG TABLETS PO SCH (21:14)
[2022-03-10] MEDS: THIAMINE HCL 100 MG TABLET (FP) PO SCH (21:14)
[2022-03-11] MEDS: LACTULOSE 20 GM/30 ML UDC (FOR ORAL USE ONLY) PO SCH ×3 (06:05→21:19)
[2022-03-11] MEDS: DOXYCYCLINE HYCLATE 100 MG TABLET PO SCH ×2 (09:37→17:19)
[2022-03-11] MEDS: THIAMINE HCL 100 MG TABLET (FP) PO SCH (21:19)
[2022-03-11] MEDS: MELATONIN 5 MG TABLETS PO SCH (21:19)
[2022-03-12] MEDS: LACTULOSE 20 GM/30 ML UDC (FOR ORAL USE ONLY) PO SCH ×3 (06:02→21:07)
[2022-03-12] MEDS: DOXYCYCLINE HYCLATE 100 MG TABLET PO SCH ×2 (09:52→17:20)
[2022-03-12] MEDS: MELATONIN 5 MG TABLETS PO SCH (21:07)
[2022-03-12] MEDS: THIAMINE HCL 100 MG TABLET (FP) PO SCH (21:07)
[2022-03-13] MEDS: LACTULOSE 20 GM/30 ML UDC (FOR ORAL USE ONLY) PO SCH ×3 (06:17→21:12)
[2022-03-13] MEDS: DOXYCYCLINE HYCLATE 100 MG TABLET PO SCH ×2 (09:11→17:17)
[2022-03-13] MEDS: MELATONIN 5 MG TABLETS PO SCH (21:12)
[2022-03-13] MEDS: THIAMINE HCL 100 MG TABLET (FP) PO SCH (21:12)
[2022-03-14] MEDS: LACTULOSE 20 GM/30 ML UDC (FOR ORAL USE ONLY) PO SCH ×3 (06:32→21:15)
[2022-03-14] MEDS: DOXYCYCLINE HYCLATE 100 MG TABLET PO SCH ×2 (09:50→18:01)
[2022-03-14] MEDS: MELATONIN 5 MG TABLETS PO SCH (21:16)
[2022-03-14] MEDS: THIAMINE HCL 100 MG TABLET (FP) PO SCH (21:16)
[2022-03-15] MEDS: LACTULOSE 20 GM/30 ML UDC (FOR ORAL USE ONLY) PO SCH ×3 (06:09→21:12)
[2022-03-15] MEDS: DOXYCYCLINE HYCLATE 100 MG TABLET PO SCH (09:37)
[2022-03-15] MEDS: THIAMINE HCL 100 MG TABLET (FP) PO SCH (21:12)
[2022-03-15] MEDS: MELATONIN 5 MG TABLETS PO SCH (21:12)
[2022-03-16] MEDS: LACTULOSE 20 GM/30 ML UDC (FOR ORAL USE ONLY) PO SCH ×3 (06:23→21:18)
[2022-03-16] MEDS: DOXYCYCLINE HYCLATE 100 MG TABLET PO SCH ×2 (13:42→18:03)
[2022-03-16] MEDS: THIAMINE HCL 100 MG TABLET (FP) PO SCH (21:18)
[2022-03-16] MEDS: MELATONIN 5 MG TABLETS PO SCH (21:18)
[2022-03-17] MEDS: LACTULOSE 20 GM/30 ML UDC (FOR ORAL USE ONLY) PO SCH ×3 (05:51→21:15)
[2022-03-17] MEDS: DOXYCYCLINE HYCLATE 100 MG TABLET PO SCH ×2 (09:39→18:13)
[2022-03-17] MEDS: THIAMINE HCL 100 MG TABLET (FP) PO SCH (21:15)
[2022-03-17] MEDS: MELATONIN 5 MG TABLETS PO SCH (21:15)
[2022-03-18] MEDS: LACTULOSE 20 GM/30 ML UDC (FOR ORAL USE ONLY) PO SCH ×3 (05:52→21:29)
[2022-03-18] MEDS: DOXYCYCLINE HYCLATE 100 MG TABLET PO SCH ×2 (10:09→18:08)
[2022-03-18] MEDS: MELATONIN 5 MG TABLETS PO SCH (21:29)
[2022-03-18] MEDS: THIAMINE HCL 100 MG TABLET (FP) PO SCH (21:29)
[2022-03-19] MEDS: LACTULOSE 20 GM/30 ML UDC (FOR ORAL USE ONLY) PO SCH (06:42)
[2022-03-19 07:21] VITALS: BP 108/71; PULSE 62; TEMP 97.3
[2022-03-19] MEDS: DOXYCYCLINE HYCLATE 100 MG TABLET PO SCH (09:08)
== END 2022-03-19 09:42 | disposition home or self-care (01) | DRG 772 ==
LOC: YASAS 08:20 → Y5N 12:22
PROVIDERS: ADMIT Allergy & Immunology; ATTEND Psychiatry & Neurology Pain Medicine
PROC: HZ42ZZZ Group Counseling for Substance Abuse Treatment, Cognitive-Behavioral (ICD-10-PCS; principal; 2022-03-06)
DX: F10.20 Alcohol dependence, uncomplicated (principal); F11.10 Opioid abuse, uncomplicated; F14.20 Cocaine dependence, uncomplicated; F12.10 Cannabis abuse, uncomplicated; F17.210 Nicotine dependence, cigarettes, uncomplicated; F19.282 Other psychoactive substance dependence with psychoactive substance-induced sleep disorder; F32.A Depression, unspecified; F43.10 Post-traumatic stress disorder, unspecified; F64.0 Transsexualism; B19.10 Unspecified viral hepatitis B without hepatic coma; R79.89 Other specified abnormal findings of blood chemistry; Z62.810 Personal history of physical and sexual abuse in childhood; Z91.410 Personal history of adult physical and sexual abuse; Z86.19 Personal history of other infectious and parasitic diseases; Z90.79 Acquired absence of other genital organ(s); Z88.0 Allergy status to penicillin; Z88.6 Allergy status to analgesic agent
CPT/HCPCS: 36415; 80053; 81003; 82140; 82962; 83036; 85027; 86593; 86780; 86803; C9803-CS; U0003; U0005

== ENCOUNTER 2022-07-06 11:27 | Inpatient (IN) | payer OTHER ==
[2022-07-06 11:42] VITALS: BMI 29.5
[2022-07-06] MEDS ORDERED: ACETAMINOPHEN 325 MG TABLET (FP) PO PRN (12:40)
[2022-07-06] MEDS ORDERED: POLYETHYLENE GLYCOL (HEALTHYLAX) 3350 17 GM PACKET PO PRN (12:40)
[2022-07-06] MEDS ORDERED: DICYCLOMINE HCL 10 MG CAPSULE PO PRN (12:40)
[2022-07-06] MEDS ORDERED: NICOTINE POLACRILEX 2 MG GUM BUC PRN (12:40)
[2022-07-06] MEDS ORDERED: IBUPROFEN 600 MG TABLET (FP) PO PRN (12:40)
[2022-07-06] MEDS ORDERED: guaiFENesin 600 MG TABLET.ER (FP) PO PRN (12:40)
[2022-07-06] MEDS ORDERED: NICOTINE 7 MG/24 HOURS TOPICAL PATCH TD PRN (12:40)
[2022-07-06] MEDS ORDERED: MAGNESIUM HYDROX 2400MG/30ML ORAL SUSPENSION 30 ML CUP PO PRN (12:40)
[2022-07-06] MEDS ORDERED: IBUPROFEN 400 MG TABLET (FP) PO PRN (12:40)
[2022-07-06] MEDS ORDERED: MAG HYDROX/AL HYDROX/SIMETH 30 ML UNIT-DOSE CUP PO PRN (12:40)
[2022-07-06] MEDS ORDERED: ONDANSETRON *ODT* 4 MG TABLET SL PRN (12:40)
[2022-07-06] MEDS ORDERED: LORazepam 1 MG TABLET PO PRN (12:40)
[2022-07-06] MEDS ORDERED: hydrOXYzine PAMOATE 25 MG CAPSULE (FP) PO PRN (12:40)
[2022-07-06] MEDS ORDERED: BENZOCAINE/MENTHOL (CHLORASEPTIC ) LOZENGE MM PRN (12:40)
[2022-07-06] MEDS ORDERED: LOPERAMIDE HCL 2 MG CAPSULE PO PRN (12:40)
[2022-07-06] MEDS ORDERED: BENZONATATE 200 MG CAPSULE PO PRN (12:40)
[2022-07-06] MEDS ORDERED: BISMUTH SUBSALICYLATE 262 MG/15 ML BTL PO PRN (12:40)
[2022-07-06] MEDS ORDERED: LORazepam 1 MG TABLET ONE (13:28)
[2022-07-06 18:10] LABS: HEMATOCRIT 37.5 % (35.4-49); HEMOGLOBIN 12.7 GM/dL (11.7-16.9); MCH 27.7 pg (25.7-33.7); MEAN CELL VOLUME 81.4 fl (80-96); MEAN PLT VOLUME 8.7 fl (7.5-11.1); PLATELET COUNT 304 10^3/uL (134-434); RDW 16.4 % (11.9-15.9); WHITE BLOOD COUNT 5.9 K/mm3 (4.0-10.0)
[2022-07-06 18:11] LABS: ALBUMIN 3.9 g/dl (3.4-5.0); BLOOD UREA NITROGEN 19.6 mg/dL (7-18); CALCIUM 9.6 mg/dL (8.5-10.1)
[2022-07-06 18:14] LABS: CREATININE 0.9 mg/dL (0.55-1.3)
[2022-07-06 18:16] LABS: BILIRUBIN,TOTAL 0.1 mg/dL (0.2-1); TOT PROT 7.4 g/dl (6.4-8.2)
[2022-07-06] MEDS: LORazepam 2 MG TABLET PO SCH ×2 (18:17→22:02)
[2022-07-06] MEDS: METHOCARBAMOL 500 MG TABLET PO PRN (18:19)
[2022-07-06] MEDS: MELATONIN 5 MG TABLETS PO SCH (22:01)
[2022-07-06] MEDS: THIAMINE HCL 100 MG TABLET (FP) PO SCH (22:02)
[2022-07-07] MEDS: LORazepam 2 MG TABLET PO SCH ×4 (05:25→22:05)
[2022-07-07] MEDS: PRENATAL VITAMINS W/ FOLIC ACID TABLET (FP) PO SCH (10:19)
[2022-07-07] MEDS: LACTULOSE 20 GM/30 ML UDC (FOR ORAL USE ONLY) PO SCH (13:14)
[2022-07-07] MEDS: METHOCARBAMOL 500 MG TABLET PO PRN (18:10)
[2022-07-07] MEDS: MELATONIN 5 MG TABLETS PO SCH (22:05)
[2022-07-07] MEDS: THIAMINE HCL 100 MG TABLET (FP) PO SCH (22:05)
[2022-07-08] MEDS: LORazepam 1 MG TABLET PO SCH ×4 (05:35→22:30)
[2022-07-08] MEDS: PRENATAL VITAMINS W/ FOLIC ACID TABLET (FP) PO SCH (10:20)
[2022-07-08] MEDS: LACTULOSE 20 GM/30 ML UDC (FOR ORAL USE ONLY) PO SCH (10:20)
[2022-07-08] MEDS: THIAMINE HCL 100 MG TABLET (FP) PO SCH (22:29)
[2022-07-08] MEDS: MELATONIN 5 MG TABLETS PO SCH (22:30)
[2022-07-09] MEDS ORDERED: LORazepam 0.5 MG TABLET PO PRN
[2022-07-09] MEDS: LORazepam 0.5 MG TABLET PO SCH ×2 (05:21→10:01)
[2022-07-09] MEDS: LACTULOSE 20 GM/30 ML UDC (FOR ORAL USE ONLY) PO SCH (10:00)
[2022-07-09] MEDS: PRENATAL VITAMINS W/ FOLIC ACID TABLET (FP) PO SCH (10:00)
[2022-07-09 14:44] VITALS: BP 110/71; PULSE 76; RESP 18; TEMP 98.1
[2022-07-10] MEDS ORDERED: LORazepam 0.5 MG TABLET PO ONE (05:00)
== END 2022-07-09 02:50 | disposition other institution (70) | DRG 773 ==
LOC: YASAS 11:27 → Y6N 13:27
PROVIDERS: ADMIT Allergy & Immunology; ATTEND Surgery
PROC: HZ2ZZZZ Detoxification Services for Substance Abuse Treatment (ICD-10-PCS; principal; 2022-07-06)
DX: F10.230 Alcohol dependence with withdrawal, uncomplicated (principal); F14.20 Cocaine dependence, uncomplicated; F11.20 Opioid dependence, uncomplicated; F12.20 Cannabis dependence, uncomplicated; F17.210 Nicotine dependence, cigarettes, uncomplicated; F32.A Depression, unspecified; F43.10 Post-traumatic stress disorder, unspecified; F64.0 Transsexualism; K70.30 Alcoholic cirrhosis of liver without ascites; E72.20 Disorder of urea cycle metabolism, unspecified; Z62.810 Personal history of physical and sexual abuse in childhood; Z91.410 Personal history of adult physical and sexual abuse; Z86.19 Personal history of other infectious and parasitic diseases; Z88.0 Allergy status to penicillin; Z88.6 Allergy status to analgesic agent
CPT/HCPCS: 36415; 80053; 82140; 85027; 86593; 86780; C9803-CS; U0003; U0005

== ENCOUNTER 2022-07-09 14:54 | Inpatient (IN) | payer OTHER ==
[2022-07-09] MEDS ORDERED: hydrOXYzine PAMOATE 25 MG CAPSULE (FP) PO PRN (16:00)
[2022-07-09] MEDS ORDERED: LOPERAMIDE HCL 2 MG CAPSULE PO PRN (16:00)
[2022-07-09] MEDS ORDERED: MAG HYDROX/AL HYDROX/SIMETH 30 ML UNIT-DOSE CUP PO PRN (16:00)
[2022-07-09] MEDS ORDERED: BENZONATATE 200 MG CAPSULE PO PRN (16:00)
[2022-07-09] MEDS ORDERED: BENZOCAINE/MENTHOL (CHLORASEPTIC ) LOZENGE MM PRN (16:00)
[2022-07-09] MEDS ORDERED: IBUPROFEN 600 MG TABLET (FP) PO PRN (16:00)
[2022-07-09] MEDS ORDERED: METHOCARBAMOL 500 MG TABLET PO PRN (16:00)
[2022-07-09] MEDS ORDERED: NALOXONE HCL 0.4 MG/ML VIAL IVPUSH PRN (16:00)
[2022-07-09] MEDS ORDERED: POLYETHYLENE GLYCOL (HEALTHYLAX) 3350 17 GM PACKET PO PRN (16:00)
[2022-07-09] MEDS ORDERED: IBUPROFEN 400 MG TABLET (FP) PO PRN (16:00)
[2022-07-09] MEDS ORDERED: guaiFENesin 600 MG TABLET.ER (FP) PO PRN (16:00)
[2022-07-09] MEDS ORDERED: NALOXONE HCL (KLOXXADO) 8 MG SPRAY NS PRN (16:00)
[2022-07-09] MEDS ORDERED: AMMONIUM LACTATE 12% LOTION 225 GM BOTTLE TP PRN (16:00)
[2022-07-09] MEDS ORDERED: ACETAMINOPHEN 325 MG TABLET (FP) PO PRN (16:00)
[2022-07-09] MEDS ORDERED: COLLOIDAL OATMEAL 1 BAR EACH TP PRN (16:00)
[2022-07-09] MEDS: MELATONIN 5 MG TABLETS PO SCH (21:29)
[2022-07-09] MEDS: THIAMINE HCL 100 MG TABLET (FP) PO SCH (21:29)
[2022-07-10] MEDS: PRENATAL VITAMINS W/ FOLIC ACID TABLET (FP) PO SCH (10:15)
[2022-07-10] MEDS: NICOTINE 7 MG/24 HOURS TOPICAL PATCH TD SCH (10:17)
[2022-07-10] MEDS ORDERED: TOLNAFTATE 1% CREAM 15 GM TUBE TP SCH (12:45)
[2022-07-10 13:55] LABS: HIV INTERPRETATION NEGATIVE (NEGATIVE)
[2022-07-10] MEDS: TOLNAFTATE 1% CREAM 15 GM TUBE TP SCH ×2 (14:23→21:25)
[2022-07-10] MEDS: MELATONIN 5 MG TABLETS PO SCH (21:26)
[2022-07-10] MEDS: THIAMINE HCL 100 MG TABLET (FP) PO SCH (21:26)
[2022-07-11] MEDS: NICOTINE POLACRILEX 2 MG GUM BUC PRN (09:36)
[2022-07-11] MEDS: PRENATAL VITAMINS W/ FOLIC ACID TABLET (FP) PO SCH (09:36)
[2022-07-11] MEDS: NICOTINE 7 MG/24 HOURS TOPICAL PATCH TD SCH (09:36)
[2022-07-11] MEDS: TOLNAFTATE 1% CREAM 15 GM TUBE TP SCH ×2 (09:36→21:20)
[2022-07-11] MEDS: THIAMINE HCL 100 MG TABLET (FP) PO SCH (21:18)
[2022-07-11] MEDS: MELATONIN 5 MG TABLETS PO SCH (21:19)
[2022-07-12 07:50] VITALS: RESP 18
[2022-07-12] MEDS: PRENATAL VITAMINS W/ FOLIC ACID TABLET (FP) PO SCH (10:05)
[2022-07-12] MEDS: TOLNAFTATE 1% CREAM 15 GM TUBE TP SCH ×2 (10:05→21:39)
[2022-07-12] MEDS: NICOTINE 7 MG/24 HOURS TOPICAL PATCH TD SCH (10:05)
[2022-07-12] MEDS: THIAMINE HCL 100 MG TABLET (FP) PO SCH (21:39)
[2022-07-12] MEDS: MELATONIN 5 MG TABLETS PO SCH (21:39)
[2022-07-13] MEDS: PRENATAL VITAMINS W/ FOLIC ACID TABLET (FP) PO SCH (09:56)
[2022-07-13] MEDS: NICOTINE 7 MG/24 HOURS TOPICAL PATCH TD SCH (09:56)
[2022-07-13] MEDS: TOLNAFTATE 1% CREAM 15 GM TUBE TP SCH ×2 (09:57→21:30)
[2022-07-13] MEDS: LACTULOSE 20 GM/30 ML UDC (FOR ORAL USE ONLY) PO SCH ×4 (09:58→21:29)
[2022-07-13] MEDS: MAGNESIUM HYDROX 2400MG/30ML ORAL SUSPENSION 30 ML CUP PO PRN (17:33)
[2022-07-13] MEDS: THIAMINE HCL 100 MG TABLET (FP) PO SCH (21:29)
[2022-07-13] MEDS: MELATONIN 5 MG TABLETS PO SCH (21:29)
[2022-07-14] MEDS: NICOTINE 7 MG/24 HOURS TOPICAL PATCH TD SCH (09:36)
[2022-07-14] MEDS: TOLNAFTATE 1% CREAM 15 GM TUBE TP SCH ×2 (09:36→21:33)
[2022-07-14] MEDS: LACTULOSE 20 GM/30 ML UDC (FOR ORAL USE ONLY) PO SCH ×4 (09:36→21:33)
[2022-07-14] MEDS: PRENATAL VITAMINS W/ FOLIC ACID TABLET (FP) PO SCH (09:36)
[2022-07-14] MEDS: MELATONIN 5 MG TABLETS PO SCH (21:33)
[2022-07-14] MEDS: THIAMINE HCL 100 MG TABLET (FP) PO SCH (21:33)
[2022-07-15] MEDS: LACTULOSE 20 GM/30 ML UDC (FOR ORAL USE ONLY) PO SCH ×4 (09:52→21:45)
[2022-07-15] MEDS: PRENATAL VITAMINS W/ FOLIC ACID TABLET (FP) PO SCH (09:52)
[2022-07-15] MEDS: NICOTINE 7 MG/24 HOURS TOPICAL PATCH TD SCH (09:52)
[2022-07-15] MEDS: NICOTINE POLACRILEX 2 MG GUM BUC PRN (09:52)
[2022-07-15] MEDS: TOLNAFTATE 1% CREAM 15 GM TUBE TP SCH ×2 (09:54→21:45)
[2022-07-15] MEDS: THIAMINE HCL 100 MG TABLET (FP) PO SCH (21:45)
[2022-07-15] MEDS: MELATONIN 5 MG TABLETS PO SCH (21:45)
[2022-07-16] MEDS: NICOTINE 7 MG/24 HOURS TOPICAL PATCH TD SCH (10:26)
[2022-07-16] MEDS: LACTULOSE 20 GM/30 ML UDC (FOR ORAL USE ONLY) PO SCH (10:26)
[2022-07-16] MEDS: TOLNAFTATE 1% CREAM 15 GM TUBE TP SCH ×2 (10:26→21:38)
[2022-07-16] MEDS: PRENATAL VITAMINS W/ FOLIC ACID TABLET (FP) PO SCH (10:26)
[2022-07-16] MEDS: MELATONIN 5 MG TABLETS PO SCH (21:37)
[2022-07-16] MEDS: THIAMINE HCL 100 MG TABLET (FP) PO SCH (21:37)
[2022-07-17] MEDS: PRENATAL VITAMINS W/ FOLIC ACID TABLET (FP) PO SCH (09:44)
[2022-07-17] MEDS: NICOTINE 7 MG/24 HOURS TOPICAL PATCH TD SCH (09:45)
[2022-07-17] MEDS: TOLNAFTATE 1% CREAM 15 GM TUBE TP SCH ×2 (09:46→21:34)
[2022-07-17] MEDS: MELATONIN 5 MG TABLETS PO SCH (21:34)
[2022-07-17] MEDS: THIAMINE HCL 100 MG TABLET (FP) PO SCH (21:34)
[2022-07-18] MEDS: PRENATAL VITAMINS W/ FOLIC ACID TABLET (FP) PO SCH (10:03)
[2022-07-18] MEDS: NICOTINE 7 MG/24 HOURS TOPICAL PATCH TD SCH (10:03)
[2022-07-18] MEDS: TOLNAFTATE 1% CREAM 15 GM TUBE TP SCH ×2 (10:04→21:45)
[2022-07-18] MEDS: THIAMINE HCL 100 MG TABLET (FP) PO SCH (21:44)
[2022-07-18] MEDS: MELATONIN 5 MG TABLETS PO SCH (21:44)
[2022-07-19] MEDS: PRENATAL VITAMINS W/ FOLIC ACID TABLET (FP) PO SCH (09:37)
[2022-07-19] MEDS: MAGNESIUM HYDROX 2400MG/30ML ORAL SUSPENSION 30 ML CUP PO PRN (09:37)
[2022-07-19] MEDS: TOLNAFTATE 1% CREAM 15 GM TUBE TP SCH ×2 (10:13→21:07)
[2022-07-19] MEDS: NICOTINE 7 MG/24 HOURS TOPICAL PATCH TD SCH (10:13)
[2022-07-19] MEDS: THIAMINE HCL 100 MG TABLET (FP) PO SCH (21:07)
[2022-07-19] MEDS: MELATONIN 5 MG TABLETS PO SCH (21:07)
[2022-07-20 07:18] VITALS: BP 113/70; PULSE 65; TEMP 96.8
== END 2022-07-20 08:50 | disposition home or self-care (01) | DRG 772 ==
LOC: YASAS 14:54 → Y5N 14:55
PROVIDERS: ADMIT Allergy & Immunology; ATTEND Allergy & Immunology
PROC: HZ42ZZZ Group Counseling for Substance Abuse Treatment, Cognitive-Behavioral (ICD-10-PCS; principal; 2022-07-09)
DX: F10.20 Alcohol dependence, uncomplicated (principal); F14.20 Cocaine dependence, uncomplicated; F17.210 Nicotine dependence, cigarettes, uncomplicated; F43.10 Post-traumatic stress disorder, unspecified; B35.3 Tinea pedis; F64.0 Transsexualism; Z87.890 Personal history of sex reassignment; Z86.19 Personal history of other infectious and parasitic diseases; Z88.0 Allergy status to penicillin; Z88.6 Allergy status to analgesic agent
CPT/HCPCS: 36415; 82140; 87389